=== PATIENT | female | born 1955 | race Caucasian/White ===

== ENCOUNTER → 2018-10-28 11:21 | Outpatient (CLI) | payer MEDICARE, OTHER, SELFPAY ==
--- NOTE | 2018-10-28 11:33 | XR_ITS ---
EXAM: XR lumbar spine min 4V HISTORY: ITS.REASON: LOW BACK PAIN ORDERING PHYSICIAN: Santy Arrington MD PATIENT AGE: 63 years COMPARISON: None FINDINGS: There is mild anterolisthesis of L4 on L5 of 4 mm. There are mild facet arthritic changes at L4-L5 and L5-S1. There is minimal dorsal angulation of the tip of the coccyx. Generalized vascular calcification is present. No fracture or dislocation. No lytic or blastic change IMPRESSION: Mild degenerative change, no acute finding
== END ==
PROVIDERS: PCP Family Medicine; Visit Provider Family Medicine
DX: M54.5 Low back pain (principal)
CPT/HCPCS: 72110

== ENCOUNTER → 2019-02-09 15:12 | Outpatient (CLI) | payer MEDICARE, OTHER, SELFPAY ==
--- NOTE | 2019-02-09 15:19 | CA_ITS ---
APPROVED REPORT Bilateral Lower Extremity Venous Study for DVT. Microbiology Teacher: JOSELUIS Indications Lower Extremity Pain: Vein Imaging CFV (L): compressive, spontaneous, phasic, augmentation SFJ (L): compressive, spontaneous, phasic, augmentation FEM (L): compressive, spontaneous, phasic, augmentation POP (L): compressive, spontaneous, phasic, augmentation PTV (L): Compressible GSV (L): Compressible Peroneals (L):Compressible GAS (L): Compressible Findings No evidence of DVT or superficial thrombophlebitis in the veins scanned of the left lower extremity. Jil Sanders notified Conclusion No evidence of DVT or superficial thrombophlebitis in the veins scanned of the left lower extremity. Electronically signed by : Trino Liao MD 02/10/2019 15:47:12
[2019-02-09 16:35] LABS: Basophils # 0.1 K/mm3 (0-0.2); Basophils % 0.7 % (0.1-2.0); Eosinophils # 0.1 K/mm3 (0.0-0.4); Eosinophils % 1.5 % (0.1-12.0); Hematocrit 38.8 % (37.0-47.0); Hemoglobin 12.7 g/dL (12.2-16.2); Lymphocytes # 2.4 K/mm3 (0.7-4.5); Lymphocytes % 27.9 % (10-50); Mean Corpuscular HGB Conc 32.6 g/dL (31.8-35.4); Mean Corpuscular Hemoglobin 29.8 pg (27.0-31.2); Mean Corpuscular Volume 91.3 fl (81-99); Mean Platelet Volume 8.3 fl (7.4-10.4); Monocytes # 0.4 K/mm3 (0.1-1.0); Neutrophils # 5.6 K/mm3 (1.8-7.8); Neutrophils % 64.8 % (37.0-80.0); Platelet Count 239 K/mm3 (142-424); Red Blood Count 4.25 M/mm3 (4.20-5.40); Red Cell Distribution Width 12.9 % (11.5-17.5); White Blood Count 8.6 K/mm3 (4.8-10.8)
[2019-02-09 17:17] LABS: Alanine Aminotransferase 37 U/L (12-78); Albumin Level 4.3 gm/dL (3.4-5.0); Albumin/Globulin Ratio 1.5 (1.1-1.8); Alkaline Phosphatase 68 U/L (46-116); Anion Gap 18.2 mEq/L (5-15); Aspartate Amino Transferase 34 U/L (15-37); Bilirubin,Total 0.3 mg/dL (0.2-1.0); Blood Urea Nitrogen 14 mg/dL (7-18); C-Reactive Protein 0.2 mg/dL (0.0-0.9); Calcium 9.2 mg/dL (8.5-10.1); Carbon Dioxide 27 mmol/L (21.0-32.0); Chloride 97 mmol/L (98-107); Creatinine,Serum 0.85 mg/dL (0.55-1.02); Estimated Glomerular Filt Rate 67 ml/min (>60); GFR (African American) 81 ML/MIN (>60); Globulin 2.9 gm/dl (1.3-3.2); Glucose 197 mg/dL (74-106); Magnesium 1.8 mg/dL (1.4-2.2); Potassium 4.2 mmoL/L (3.5-5.1); Sodium 138 mmol/L (136-145); Total Protein,Serum 7.2 gm/dL (6.4-8.2)
== END ==
PROVIDERS: PCP Family Medicine; Visit Provider Nurse Practitioner Family
DX: M79.662 Pain in left lower leg (principal)
CPT/HCPCS: 36415; 80053; 83735; 85025; 86140; 93971

== ENCOUNTER → 2019-04-27 10:42 | Outpatient (CLI) | payer MEDICARE, OTHER, SELFPAY ==
--- NOTE | 2019-04-27 | CA_ITS ---
APPROVED REPORT Exam: Pharmacologic Technologist: Elly Mullen Ht: 5 ft 8 in Wt: 323 lbs BSA: 2.51 m2 HR: 71 bpm BP: 144/90 mmHg Indications: Shortness of Breath and chest pain Stress Test Details Test: LEXISCAN HR Resting HR: 69 bpm Max Heart Rate (APMHR): 155 bpm Max HR Achieved: 85 bpm Target HR (85% APMHR): 131 bpm % of APMHR: 54 Recovery HR: 75 bpm BP Resting BP: 144/90 mmHg Max BP: 144/90 mmHg Recovery BP: 140.0/80.0 mmHg ECG Clinical Reason for Termination: Completed Protocol Exercise duration: 04:05 min Highest Stage Achieved: Exercise capacity: 1.0 METs Stress ECG Conclusion Resting ECG: Normal sinus rhythm Symptoms: No chest pain or shortness of air. Arrhythmias/Ectopy: None ST-T Changes: < 1.[address] segment changes Conclusion: Non-diagnostic stress test. Patient received the infusion per protocol without chest pain, ST segment changes or arrhythmias. See the nuclear report for further information. Test Summary REST . . . . . . . Resting REST 13:47 . . 69 . 144/ 90 . . Stage 1 . . . . . . . Myoview Injected Stage 1 01:00 . . 82 . . . . Stage 2 01:00 . . 81 . 140/ 90 . . Stage 3 01:00 . . 81 . 130/ 88 . . Stage 4 01:00 . . 79 . 130/ 70 . . Stage 4 01:05 . . 79 . 130/ 70 . Stop exercise at 04:05 RECOVERY 01:00 . . 76 . . . . RECOVERY 02:00 . . 74 . . . . RECOVERY 03:00 . . 75 . . . . RECOVERY 03:34 . . 71 . . . . Electronically signed by : Dane Miller, 04/27/2019 19:39:16
--- NOTE | 2019-04-27 10:48 | CA_ITS ---
APPROVED REPORT EXAM: Comprehensive 2D, Doppler, and color-flow Echocardiogram Cryogenics Repairer: Niyah Boudreaux CRT Ht: 5 ft 8 in Wt: 323lbs BSA: 2.51 BP: 159/79 mmHg Indications: sob, obesity, tde definity given Echo Enhancing Agent Indication: Endocardial border delineation Agent(s) / Amount(s) Used: Definity 1 cc LV Diastology E/A Ratio 0.76 Mitral Valve MV A Velocity 85.00 (40-130 cm/s) Left Ventricle Left atrium is mildly enlarged, left ventricle is normal size, mild concentric left ventricular hypertrophy, visually estimated ejection fraction 55% with no regional wall motion abnormality, definitely contrast was utilized to delineate the endocardial surfaces, there is no left ventricular thrombus seen, grade 1 diastolic dysfunction seen without tissue Doppler evidence of raise left atrial pressure. Right Ventricle Right atrium and right ventricular normal size and contractility. Aortic Valve Aortic valve is minimally thickened and fibrosed, there is no aortic stenosis, or significant aortic insufficiency. Mitral Valve Mitral valve is grossly normal, there is mild mitral regurgitation. Tricuspid Valve Tricuspid valve is grossly normal, there is mild tricuspid regurgitation. Pulmonic Valve Pulmonic valve is poorly visualized. Great Vessels Aortic root is normal size. Pericardium No significant pericardial effusion noted. Conclusion 1. Mildly enlarged left atrium, normal left ventricular size, mild concentric left ventricular hypertrophy, visually estimated ejection fraction 55% with no regional wall motion abnormality, grade 1 diastolic dysfunction seen without tissue Doppler evidence of raise left atrial pressure, definitely contrast was utilized to delineate the endocardial surfaces, there is no left ventricular thrombus seen. 2. Mildly enlarged right ventricle with normal contractility. 3. Mild mitral and tricuspid regurgitation. 4. No significant pericardial effusion noted. Electronically signed by : Dane Miller, 04/27/2019 20:26:57
--- NOTE | 2019-04-27 11:29 | NM_ITS ---
APPROVED REPORT Exam: Nuclear Stress Test Indication: obesity, htn, d.m., hyperlipidemia, c.p., sob, palpitations, syncope, fatique Patient Location: Outpatient Stress Tech: Deena Montelongo MS Tech:Janee Cruz, ARRT, RT (R)(N) Ht: 5 ft 8 in Wt: 323 lbs Bra Size: 48DD HR: 71 bpm BP: 144/90 mmHg BSA: 2.51 m2 BMI: 49.1 History: obesity, htn, d.m., hyperlipidemia, c.p., sob, palpitations, syncope, fatique Procedure: Patient received a 0.4 mg of intravenous Lexiscan, resting heart rate 71 bpm, resting blood pressure 144/90 mmHg, with Lexiscan maximum heart rate achived was 98 bpm which is Less than 85 % of the maximum predicted heart rate and blood pressure was 130/88 mmHg. With Lexiscan, patient denied any complaint of chest pain. Electrocardiogram Resting electrocardiogram shows sinus rhythm, with Lexiscan there is less than 1.[address] segment depression noted from the baseline EKG. The EKG portion of the Lexiscan Myoview is nondiagnostic. Cardiac Stress and Resting SPECT Images: Cardiac Stress and Resting SPECT images were obtained using technetium 99m Myoview 30.6 mCi stress and 11.37 mCi at rest. Gated SPECT with analysis of segmental wall motion and calculation of the ejection fraction also done. Cardiac stress and resting SPECT images show mild fixed defect in the anterior wall with normal contractility to SPECT is likely secondary to soft tissue attenuation, no reversible ischemia seen, computer derived ejection fraction is over 65% with no regional wall motion abnormality, right ventricle is mildly enlarged with normal contractility. Conclusion: 1. The EKG portion of the Lexiscan Myoview is nondiagnostic. 2. No scintigraphic evidence of reversible ischemia seen, computer derived ejection fraction is over 65% with no regional wall motion abnormality, right ventricle is mildly enlarged with normal contractility. 3. Likely normal Lexiscan Myoview study. Electronically signed by : Dane Miller, 04/27/2019 19:41:53
--- NOTE | 2019-04-27 14:10 | HMH.ITSHM ---
Current Home Medications as stated by this patient Nancy Neil or guest services representative. []AMOXICILLIN ANASTROZOLE ATENOLOL DYLOXETINE FLOCANAZOLE GABAPENTIN HYDROCODONE LEVOTHYROXINE MELOXICAM METFORMIN OMEGA 3 PIOGLITAZONE PRAVSTATIN SULFASLAZINE TRIAMTERENE
== END ==
PROVIDERS: PCP Family Medicine; Visit Provider Nurse Practitioner
DX: R06.02 Shortness of breath (principal); R11.0 Nausea
CPT/HCPCS: 78452; 93017; 93306; A9502; J2785; Q9957

== ENCOUNTER → 2019-05-01 08:17 | Outpatient (CLI) | payer MEDICARE, OTHER, SELFPAY ==
--- NOTE | 2019-05-01 08:20 | US_ITS ---
PROCEDURE: US ABDOMEN LIMITED CLINICAL INDICATION: SOB,NAUSEA Right upper quadrant pain with nausea COMPARISON: No exams were available for comparison FINDINGS: Exam is limited secondary to patient's body habitus PANCREAS: Poor visualization of the pancreas LIVER: Fatty liver RIGHT KIDNEY: Unremarkable. Normal size and echogenicity. No hydronephrosis GALLBLADDER: No gallstones, gallbladder wall thickening, pericholecystic fluid, or biliary dilatation. IMPRESSION: Fatty liver otherwise negative Dictated by: Trino Liao MD 05/01/2019 14:31 Electronically signed by Trino Liao MD in [place] 05/01/2019 14:31
--- NOTE | 2019-05-01 08:20 | CT_ITS ---
PROCEDURE: CT HEAD/BRAIN WO/W CON CLINICAL INDICATION: ABN BONE SCAN,FATIGUE,MALIGNANT NEOPLASM OF BREAST Headache, history of lymphoma and breast cancer with fatigue COMPARISON: [facility] CT HEAD-W/WO CONTRAST from 11/17/2013 TECHNIQUE: IV Contrast: 100ML OPITRAY 320 Axial images obtained. All CT scans at the facility use one or more dose reduction, viz: automated exposure control, ma/kV adjustment per patient size (including targeted exams where dose is matched to indication, i.e. head), or iterative reconstruction technique. FINDINGS: No midline shift, mass effect, intracranial hemorrhage, hydrocephalus, or extra-axial fluid collection is evident. No enhancing lesions are evident. The calvarium has an unremarkable appearance. No mastoid effusion or sinus air-fluid level. IMPRESSION: Negative CT head without and with contrast. Dictated by: Trino Liao MD 05/01/2019 15:26 Electronically signed by Trino Liao MD in [place] 05/01/2019 15:26
== END ==
PROVIDERS: PCP Family Medicine; Visit Provider Nurse Practitioner
DX: R06.02 Shortness of breath (principal); R11.0 Nausea; R94.8 Abnormal results of function studies of other organs and systems; R53.83 Other fatigue; C50.919 Malignant neoplasm of unspecified site of unspecified female breast
CPT/HCPCS: 70470; 76705; Q9967

== ENCOUNTER → 2019-06-10 10:38 | Outpatient (CLI) | payer MEDICARE, OTHER, SELFPAY ==
[2019-06-10 11:30] VITALS: PULSE 70; PULSE 75
== END ==
PROVIDERS: PCP Family Medicine; Visit Provider Nurse Practitioner Family
DX: R06.02 Shortness of breath (principal)
CPT/HCPCS: 94060; 94640

== ENCOUNTER → 2019-06-22 10:42 | Outpatient (CLI) | payer MEDICARE, OTHER, SELFPAY ==
--- NOTE | 2019-06-22 11:02 | XR_ITS ---
PROCEDURE: XR CHEST 2V CLINICAL HISTORY: SOB Cough and shortness of breath COMPARISON: CXR CHEST(2 VIEWS-NOT PORTABLE) from 09/27/2015 FINDINGS: Mild cardiomegaly without failure. Fibrotic changes are present in the lingula. This is not significantly changed. The lungs are clear without infiltrates, suspicious nodules, or pleural effusions. No acute bony abnormalities. IMPRESSION: Cardiomegaly with mild fibrotic change in the lingula. Overall no significant change with no acute finding Dictated by: Trino Liao MD 06/22/2019 11:43 Electronically signed by Trino Liao MD in [place] 06/22/2019 11:43
== END ==
PROVIDERS: PCP Nurse Practitioner Family; Visit Provider Nurse Practitioner Family
DX: R06.02 Shortness of breath (principal)
CPT/HCPCS: 71046

== ENCOUNTER 2020-12-10 11:00 | Emergency (ER) | payer MEDICARE, OTHER, SELFPAY ==
[2020-12-10 11:01] VITALS: BP 141/71; PULSE 73; RESP 18; TEMP 36.7; O2SAT 97; BMI 47.9
--- NOTE | 2020-12-10 11:20 | XR_ITS ---
PROCEDURE INFORMATION: Exam: XR Right Wrist Exam date and time: 12/10/2020 11:20 AM Age: 65 years old Clinical indication: Injury or trauma; Fall; Blunt trauma (contusions or hematomas); Wrist; Right; Additional info: Pain TECHNIQUE: Imaging protocol: XR Right wrist. Views: 3 or more views. COMPARISON: No relevant prior studies available. FINDINGS: Bones/joints: Normal. Soft tissues: Normal. IMPRESSION: No acute findings.
--- NOTE | 2020-12-10 11:31 | XR_ITS ---
PROCEDURE INFORMATION: Exam: XR Right Forearm Exam date and time: 12/10/2020 11:31 AM Age: 65 years old Clinical indication: Injury or trauma; Fall; Blunt trauma (contusions or hematomas); Arm, lower; Right TECHNIQUE: Imaging protocol: XR Right forearm. Views: 2 views. COMPARISON: No relevant prior studies available. FINDINGS: Bones/joints: Normal. Soft tissues: Normal. IMPRESSION: No acute findings.
--- NOTE | 2020-12-10 11:31 | XR_ITS ---
PROCEDURE INFORMATION: Exam: XR Right Elbow Exam date and time: 12/10/2020 11:31 AM Age: 65 years old Clinical indication: Injury or trauma; Fall; Blunt trauma (contusions or hematomas); Elbow; Right TECHNIQUE: Imaging protocol: XR Right elbow. Views: 3 or more views. COMPARISON: No relevant prior studies available. FINDINGS: Bones/joints: Mild degenerative changes involving the elbow joint. Questionable elbow joint effusion with prominence of the anterior fat pad. Occult trauma cannot be completely excluded. . IMPRESSION: Questionable elbow joint effusion with prominence of the anterior fat pad. Occult trauma cannot be completely excluded. Remainder of findings as described above.
[2020-12-10 12:03] VITALS: BP 141/71; PULSE 73; RESP 18; TEMP 36.7; O2SAT 97; BMI 47.0
--- NOTE | 2020-12-10 12:47 | HMH.EDUTC ---
[facility] [place] Clinical Impression: Elbow pain, right Disposition: Home, Self-Care Condition on Discharge: Good Instructions: DI for Elbow Pain Additional Instructions: follow up with ortho call saturday for appointment rest Ice with cold pack for 20 minutes remove may repeat for comfort every hour Elevate with arm above your heart as much as possible to help reduce swelling and therefore pain Ibuprofen every 6 hours as needed for pain or inflammation. If needs something more you can take Tylenol every 4 hours as needed as long as her primary care has told he was okayed for you to take both. If improving any do not need to follow-up you can bring begin exercising 2-3 weeks after injury. Follow-up immediately if new or worsening symptoms or no noticeable improvement over the next 3-5 days. Referrals: Santy Arrington MD [Primary Care Provider] - Jac Nichols MD [Staff Physician] - Time of Disposition: 12:57 Medical Decision Making - Can Inquiry Pt receiving controlled substance: No Vital Signs: 12/10/20 11:01 12/10/20 12:03 Temperature 98.1 F 98.1 F Temperature Source Oral Tympanic Pulse Rate [Right] 73 73 Respiratory Rate 18 18 Blood Pressure [Right Arm] 141/71 H 141/71 H Blood Pressure Mean [Right Arm] 94 94 Blood Pressure Source [Right Arm] Automatic Cuff Blood Pressure Position [Right Arm] Sitting 02 Sat by Pulse Oximetry 97 97 Oxygen Delivery Method Room Air Room Air Medical Decision Narrative: discussed xray results with pt on anterior fat pad injury and the need to splint and sling arm until cleared by ortho but pt refused splint and states she has a sling at home. I discussed poss risk of not splinting incase there is a fx and she still refused [facility] HPI - General Chief complaint: [facility] Stated complaint: ao 12/09/20 @ 1130 injury to Rt wrist Time Seen by Provider: 12/10/20 12:47 Mode of Arrival: Ambulatory Source of Information: Patient Limitations: No Limitations Description of Symptoms (Recalled from Triage Doc. by RN): patient fell on arm HEENT Symptoms (Recalled from RN notes): No Resp Symptoms (Recalled from RN notes): No Skin Symptoms (Recalled from RN notes): No MS Symptoms (Recalled from RN notes): Yes (arm pain) Functional Status (Recalled from RN notes): na - History of Present Illness Provider Complaint: 65 yr old female presents for rt arm pain. pt states she forgot about a step and fell hitting rt forearm - Related Data Allergies Allergy/AdvReac Type Severity Reaction Status Date / Time Tetanus Toxoid Allergy Unknown Uncoded 05/07/17 14:25 - Worker's Comp Is this a Worker's Comp case?: No [facility] History - Hepatitis A Screen Drug use history?: No High risk sexual behaviors?: No History of sexually transmitted infection?: No Currently employed?: No Childcare worker?: No Do you have indoor plumbing?: Yes Do you have electricity?: Yes Attestation statement:: This patient has been screened for Hepatitis A risk factors. I have reviewed the patient's past medical history: Yes ROS Obtained: Yes Systems reviewed as appropriate & no additional complaints - Constitutional Constitutional: Reports system reviewed and no additional complaints, except as docu, Denies fatigue - Eyes Eyes: Reports system reviewed and no additional complaints, except as docu, Denies blurry vision - ENT Ears, Nose, Mouth, and Throat: Reports system reviewed and no additional complaints, except as docu, Denies sore throat - Cardiovascular Cardiovascular: Reports system reviewed and no additional complaints, except as docu, Denies chest pain - Respiratory Respiratory: Reports system reviewed and no additional complaints, except as docu, Denies cough - Gastrointestinal Gastrointestingal: Reports: system reviewed and no additional complaints, except as docu. Denies: belching - Genitourinary Female Genitourinary: Reports system reviewed and no additional complaints
[2020-12-10 12:58] VITALS: BP 141/71; PULSE 73; RESP 18; TEMP 36.7; O2SAT 97
== END 2020-12-10 13:00 | disposition home or self-care (01) ==
LOC: ER 11:19 → UTC 11:19
PROVIDERS: Emergency Provider Nurse Practitioner Family; PCP Family Medicine
DX: S50.01XA Contusion of right elbow, initial encounter (principal); W10.9XXA Fall (on) (from) unspecified stairs and steps, initial encounter; Y92.019 Unspecified place in single-family (private) house as the place of occurrence of the external cause
CPT/HCPCS: G0463; 73080; 73090; 73110; 99202

== ENCOUNTER → 2021-01-31 12:30 | Outpatient (CLI) | payer MEDICARE, OTHER, SELFPAY | PROVIDERS: PCP Family Medicine; Visit Provider Nurse Practitioner | DX: Z20.822 Contact with and (suspected) exposure to COVID-19 (principal); U07.1 COVID-19 | CPT/HCPCS: C9803; U0003; U0005 ==

== ENCOUNTER → 2021-02-20 16:40 | Outpatient (CLI) | payer MEDICARE, OTHER, SELFPAY ==
--- NOTE | 2021-02-20 16:49 | XR_ITS ---
PROCEDURE INFORMATION: Exam: XR Chest Exam date and time: 02/20/2021 4:49 PM Age: 65 years old Clinical indication: Shortness of breath; Additional info: Viral pneumonia, covid 19 TECHNIQUE: Imaging protocol: XR of the chest. Views: 2 views. COMPARISON: CR XR CHEST 2V 06/22/2019 11:20 AM FINDINGS: Lungs: Patchy bilateral opacities may represent multifocal pneumonia including COVID-19. Pleural spaces: Unremarkable. No pleural effusion. No pneumothorax. Heart/Mediastinum: Unremarkable. No cardiomegaly. Bones/joints: Unremarkable. IMPRESSION: Patchy bilateral opacities may represent multifocal pneumonia including COVID-19.
== END ==
PROVIDERS: PCP Family Medicine; Visit Provider Family Medicine
DX: U07.1 COVID-19 (principal)
CPT/HCPCS: 71046

== ENCOUNTER 2021-02-21 17:37 | Inpatient (IN) | payer MEDICARE, OTHER, SELFPAY ==
[2021-02-21 17:40] VITALS: BP 134/51; PULSE 74; RESP 30; TEMP 36.9; O2SAT 70; BMI 42.7
--- NOTE | 2021-02-21 17:46 | XR_ITS ---
PROCEDURE INFORMATION: Exam: XR Chest Exam date and time: 02/21/2021 5:46 PM Age: 65 years old Clinical indication: Patient HX: Shortness of breath, same as yesterday. Also had a chest x-ray yesterday. ; Additional info: SOB TECHNIQUE: Imaging protocol: XR of the chest. Views: 1 view. COMPARISON: CR XR CHEST 2V 02/20/2021 4:57 PM FINDINGS: Lungs: Unremarkable. No consolidation. Pleural spaces: Unremarkable. No pleural effusion. No pneumothorax. Heart/Mediastinum: Unremarkable. No cardiomegaly. Bones/joints: Unremarkable. IMPRESSION: No acute findings.
--- NOTE | 2021-02-21 18:04 | HMH.EDGENADL ---
ED Disposition Clinical Impression: Acute respiratory failure with hypoxemia, COVID-19, Hyperglycemia Disposition: Admitted As Inpatient Condition on Discharge: Fair Referrals: Wing Lopez MD [Primary Care Provider] - Time of Disposition: 19:03 - Critical Care Critical Care Time: Yes Attestation: On 02/21/21, the high probability of a clinically significant, sudden or life threatening deterioration of the following system(s) required my full and direct attention, intervention and personal management. The time I documented below is in addition to time spent performing reported procedures but includes the following listed in this critical care notation. Total Critical Care Time: 35 Vital system(s) involved:: Respiratory Failure My critical care processes included: Assessment & monitoring of V/S, Initial and Re-exams, Data Review/Interpretation, Coordinating Care, Medication Orders and management, Documentation Medical Decision Making - Medical Records Medical records reviewed: Yes: I reviewed the patient's medical records. - Can Inquiry Pt receiving controlled substance: No - Lab Data Lab results reviewed: Yes: I reviewed the patient's lab results. Lab Results 02/21/21 17:46: Specimen Source r/r, O2 % 100, ABG pH 7.45, ABG pCO2 31.0 L, ABG pO2 176.3 H, ABG HCO3 21.2 L, ABG Total CO2 22.2 L, ABG O2 Saturation 99, ABG Base Excess -2.7 L, Trino Test y 02/21/21 18:10: WBC 9.0, RBC 4.49, Hgb 13.8, Hct 42.3, MCV 94.3, MCH 30.7, MCHC 32.6, RDW 13.5, Plt Count 254, MPV 9.6, Neut % (Auto) 70.1, Lymph % (Auto) 24.5, Day % (Auto) 3.9, Eos % (Auto) 0.6, Baso % (Auto) 0.8, Neut # (Auto) 6.3, Lymph # (Auto) 2.2, Day # (Auto) 0.4, Eos # (Auto) 0.1, Baso # (Auto) 0.1 02/21/21 18:10: Sodium 134 L, Potassium 3.8, Chloride 96 L, Carbon Dioxide 30, Anion Gap 11.8, BUN 10, Creatinine 0.50 L, Estimated Creat Clear 55, Estimated GFR 123, Est GFR ( Amer) 149, Glucose 404 H*, Calcium 9.3, Total Bilirubin 0.6, AST 33, ALT 24, Alkaline Phosphatase 68, Troponin I < 0.01, NT-Pro-B Natriuret Pep 98.7, Total Protein 6.9, Albumin 3.9, Globulin 3.0, Albumin/Globulin Ratio 1.3 02/21/21 18:10: SARS-CoV-2 (PCR) Detected A, Influenza A Untype (PCR) Not detected, Influenza Type B (PCR) Not detected Result diagrams: 02/21/21 18:10 02/21/21 18:10 Orders (Tests/Meds): ORDERS Category Date Time Status Troponin I Q3H Lab 02/21/21 21:00 Ordered Troponin I Q3H Lab 02/22/21 00:00 Ordered - Radiology Data #1 Image(s): Chest Image Reviewed: Yes I reviewed the patient's radiology results Preliminary Findings: Normal/NAD - ECG Data Tracing #1 I reviewed this ECG and interpreted as documented below: Normal sinus rhythm, 77 bpm, no ST elevation or depression, no ectopy, normal intervals. ECG initial impression date: 02/21/21 ECG initial impression time: 18:34 Medical Decision Narrative: 65yo F evaluated for severe respiratory distress. Patient 70% on room air upon arrival. She was placed on 15 L nonrebreather and her O2 saturations have improved. Nursing staff been able to wean the patient down to 6 L nasal cannula while maintaining O2 saturations in the mid 90s. Patient laboratory studies are remarkable only for hyperglycemia and she is Covid positive. EKG unremarkable as above. Chest x-ray is benign. Case discussed Dr. Rodriguez who agrees to admit the patient thinks that we should treat the patient fully as a Covid patient. Routine Covid order set will be initiated. General Adult HPI - General Stated complaint: low O2 Levels Time Seen by Provider: 02/21/21 18:04 Mode of Arrival: Ambulatory - History of Present Illness HPI narrative: 65yo F presents [facility] secondary shortness of breath. Patient reports she had Covid in early January. She reports receiving monoclonal antibodies and doing better afterward. She then developed bronchitis and was treated by her PCP and again got better. She states she has h
--- NOTE | 2021-02-21 18:05 | PC.NURSE ---
PT O2 SAT 100% ON 15 LPM VIA NON REBREATHER O2 DECREASED TO 6 LPM VIA CANNULA O2 SATS 93 TO 94% AND RESTING COMFORTABLY
[2021-02-21 18:09] LABS: ABG Base Excess -2.7 mmol/L (-2.4-2.3); ABG HCO3 21.2 mmhg (22.0-26.0); ABG Oxygen Saturation 99 % (90-100); ABG PH 7.45 mmol/L (7.35-7.45); ABG PO2 176.3 mmhg (80-100); ABG TCO2 22.2 mmhg (23-27)
[2021-02-21 18:10] LABS: Allen's Test y; Oxygen 100 %
[2021-02-21 18:18] LABS: Influenza A, PCR Not Detected (NotDetected); Influenza B, PCR Not Detected (NotDetected)
[2021-02-21 18:20] LABS: Basophils # 0.1 K/mm3 (0-0.2); Basophils % 0.8 % (0.1-2.0); Eosinophils # 0.1 K/mm3 (0.0-0.4); Eosinophils % 0.6 % (0.1-12.0); Hematocrit 42.3 % (37.0-47.0); Hemoglobin 13.8 g/dL (12.2-16.2); Lymphocytes # 2.2 K/mm3 (0.7-4.5); Lymphocytes % 24.5 % (10-50); Mean Corpuscular HGB Conc 32.6 g/dL (31.8-35.4); Mean Corpuscular Hemoglobin 30.7 pg (27.0-31.2); Mean Corpuscular Volume 94.3 fl (81-99); Mean Platelet Volume 9.6 fl (7.4-10.4); Monocytes # 0.4 K/mm3 (0.1-1.0); Monocytes % 3.9 % (1.7-9.3); Neutrophils # 6.3 K/mm3 (1.8-7.8); Neutrophils % 70.1 % (37.0-80.0); Platelet Count 254 K/mm3 (142-424); Red Blood Count 4.49 M/mm3 (4.20-5.40); Red Cell Distribution Width 13.5 % (11.5-17.5)
[2021-02-21 18:25] VITALS: BMI 43.2
[2021-02-21 18:26] LABS: Alanine Aminotransferase 24 U/L (12-78); Albumin Level 3.9 g/dl (3.5-5.0); Albumin/Globulin Ratio 1.3 (1.1-1.8); Alkaline Phosphatase 68 U/L (38-126); Anion Gap 11.8 mEq/L (5-15); Aspartate Amino Transferase 33 U/L (14-36); Bilirubin,Total 0.6 mg/dl (0.2-1.3); Blood Urea Nitrogen 10 mg/dl (7-17); Calcium 9.3 mg/dl (8.4-10.2); Carbon Dioxide 30 mmol/L (22.0-30.0); Chloride 96 mmol/L (98-107); Estimated Glomerular Filt Rate 123 ml/min (>60); GFR (African American) 149 ML/MIN (>60); Potassium 3.8 mmoL/L (3.5-5.1); Sodium 134 mmol/L (136-145); Total Protein,Serum 6.9 g/dl (6.3-8.2)
--- NOTE | 2021-02-21 18:30 | ECG_ITS ---
APPROVED REPORT Exam: Resting ECG HR:77 bpm ECG Measurements Heart Rate 77 AXES LA 152 P 36 QRSd 86 QRS -20 QT 394 T 1 QTc 445 Conclusion Normal sinus rhythm Nonspecific T wave abnormality Abnormal ECG Electronically signed by : Wing Tony MD 02/23/2021 17:50:30
[2021-02-21 18:34] LABS: Creatinine Clearance Estimated 55 mL/min (50-200)
[2021-02-21 18:35] LABS: Glucose 404 mg/dl (74-100)
[2021-02-21 18:39] LABS: NT Pro Brain Natriuretic Pep. 98.7 pg/mL (0-125)
[2021-02-21 18:49] LABS: Coronavirus 19, PCR Detected (NotDetected)
[2021-02-21 18:52] LABS: Troponin I < 0.01 ng/ml (0.00-0.034)
--- NOTE | 2021-02-21 19:09 | PC.NURSE ---
spoke with Dr. Rodriguez for admission
--- NOTE | 2021-02-21 19:10 | PC.NURSE ---
Notified house of admission
--- NOTE | 2021-02-21 19:13 | CT_ITS ---
PROCEDURE INFORMATION: Exam: CTA Chest With Contrast Exam date and time: 02/21/2021 7:13 PM Age: 65 years old Clinical indication: Other: Hypoxia TECHNIQUE: Imaging protocol: Computed tomographic angiography of the chest with contrast. 3D rendering (Not supervised by radiologist): MIP and/or 3D reconstructed images were created by the technologist. Radiation optimization: All CT scans at this facility use at least one of these dose optimization techniques: automated exposure control; mA and/or kV adjustment per patient size (includes targeted exams where dose is matched to clinical indication); or iterative reconstruction. Contrast material: ISOVUE 370; Contrast volume: 70 ml; Contrast route: INTRAVENOUS (IV); COMPARISON: CR XR CHEST PORTABLE 02/21/2021 5:56 PM FINDINGS: Pulmonary arteries: Main pulmonary artery is enlarged at 40 mm. No evidence of pulmonary embolus to the segmental level. Aorta: Unremarkable. No aortic aneurysm. Other arteries: Coronary artery calcifications. Lungs: A 6 mm nodule seen in the left base. See image 225 of series 2.For patients at low risk (minimal or absent history of smoking and of other known risk factors), no routine follow-up is indicated. For patients at high risk (history of smoking or of other known risk factors), consider optional CT Chest at 12 months. (Reference: Mary) References: Miryamhokerri H, et al. Guidelines for Management of Incidental Pulmonary Nodules Detected on CT Images: From the Fleischner Society 2017. Radiology. 2017;284(1):228-243. Multifocal airspace opacities are seen. These are compatible with infection. Pleural spaces: Unremarkable. No pneumothorax. No pleural effusion. Heart: Unremarkable. No cardiomegaly. No pericardial effusion. Lymph nodes: Mildly prominent mediastinal and hilar lymph nodes. Mild prominence of right axillary lymph nodes. Bones/joints: Unremarkable. No acute fracture. Soft tissues: Unremarkable. Other findings: A 16 mm focal asymmetry is seen in the left breast about 2 cm back from the nipple. Recommend correlation with mammography to exclude malignancy. IMPRESSION: 1. A 16 mm focal asymmetry in the left breast is worrisome for potential malignancy. Prominent right axillary nodes. Recommend correlation with mammography and/or ultrasound. 2. No evidence of pulmonary embolus. Enlargement of the main pulmonary artery to 40 mm may reflect an element of pulmonary arterial hypertension. 3. Mild multifocal airspace opacities compatible with infection.
[2021-02-21 19:59] LABS: Procalcitonin 0.065 ng/mL (0.0-2.0)
[2021-02-21 20:00] VITALS: BP 130/54; BP 132/62; PULSE 76; PULSE 79; RESP 19; RESP 20; TEMP 37; O2SAT 90; O2SAT 96
[2021-02-21 20:25] VITALS: BP 130/54; PULSE 77; RESP 20; TEMP 36.9; O2SAT 93
[2021-02-21 20:31] VITALS: BMI 44.6
[2021-02-21 21:17] LABS: Troponin I < 0.01 ng/ml (0.00-0.034)
[2021-02-21 21:21] VITALS: O2SAT 93
[2021-02-21 23:57] VITALS: BP 141/62; PULSE 75; RESP 21; TEMP 36.9; O2SAT 92
[2021-02-22 03:49] LABS: Troponin I < 0.01 ng/ml (0.00-0.034)
--- NOTE | 2021-02-22 03:55 | PC.NURSE ---
ADDED HUMDICATION TO THE OXYGEN. PT STATED SHE WAS DRYING OUT. PT IS ON 4L N/C.
[2021-02-22 04:00] VITALS: BP 136/70; PULSE 75; RESP 21; TEMP 37; O2SAT 93
--- NOTE | 2021-02-22 04:22 | PC.NURSE ---
Pt A&O. No c/o of pain through the night. Lungs are diminished, on 4L NC, sats in the low to mid 90s. No edema noted. pt able to use BSC independently and tolerates well. Bowel sounds x4, abd soft and nontender. NSR on tele. IV patent, SL. VSS, call light in reach, no concerns at this time.
[2021-02-22 06:28] LABS: Basophils # 0.1 K/mm3 (0-0.2); Basophils % 0.7 % (0.1-2.0); Eosinophils # 0.1 K/mm3 (0.0-0.4); Eosinophils % 1.4 % (0.1-12.0); Hematocrit 39.2 % (37.0-47.0); Hemoglobin 12.9 g/dL (12.2-16.2); Lymphocytes # 1.9 K/mm3 (0.7-4.5); Lymphocytes % 27.1 % (10-50); Mean Corpuscular HGB Conc 32.8 g/dL (31.8-35.4); Mean Corpuscular Hemoglobin 30.3 pg (27.0-31.2); Mean Corpuscular Volume 92.4 fl (81-99); Mean Platelet Volume 9.1 fl (7.4-10.4); Monocytes # 0.3 K/mm3 (0.1-1.0); Monocytes % 4.8 % (1.7-9.3); Neutrophils # 4.6 K/mm3 (1.8-7.8); Neutrophils % 66.1 % (37.0-80.0); Platelet Count 213 K/mm3 (142-424); Red Blood Count 4.25 M/mm3 (4.20-5.40); Red Cell Distribution Width 13.7 % (11.5-17.5)
[2021-02-22 06:55] LABS: Chloride 100 mmol/L (98-107); Potassium 3.6 mmoL/L (3.5-5.1); Sodium 135 mmol/L (136-145)
[2021-02-22 06:58] LABS: Anion Gap 10.6 mEq/L (5-15); Blood Urea Nitrogen 8 mg/dl (7-17); Carbon Dioxide 28 mmol/L (22.0-30.0); Creatinine Clearance Estimated 55 mL/min (50-200); Estimated Glomerular Filt Rate 159 ml/min (>60); GFR (African American) 193 ML/MIN (>60)
[2021-02-22 06:59] LABS: Calcium 8.7 mg/dl (8.4-10.2); Glucose 224 mg/dl (74-100)
--- NOTE | 2021-02-22 07:17 | HMH.HPDC ---
General - General Admission date:: 02/21/21 Discharge date: 02/22/21 *Admission Date: 02/21/21 *Chief complaint: Shortness of breath *History of present illness: 65-year-old female presented to the emergency department last night with shortness of breath and hypoxia at home. Patient was diagnosed with COVID-19 infection and subsequent viral pneumonia on January 31. Patient received monoclonal antibodies in my office. She was also treated with dexamethasone. Approximately a week to 10 days after her monoclonal antibodies patient returned with increased cough and sputum production and was treated with a course of levofloxacin 750 mg daily. Patient contacted the office yesterday and reported that she had begun using her 's home O2 as he had been hospitalized in the month of January with COVID-19 pneumonia. Patient reported her O2 sats were in the 70s without oxygen but with application of nasal cannula at 4 L/min her O2 sats were in the low 90s. Cough was productive of green sputum according to the patient. She arrived in the emergency department on room air with O2 sats in the 70s. Patient was initially placed on facemask and then transition to nasal cannula at 6 L/min which maintained her O2 sats in the mid to high 90s. Decision was made to admit the patient for observation of oxygen requirement. Overnight nursing staff reports that patient has been stable on 4 L with O2 sats in the low 90s. However, patient is not always compliant with the oxygen choosing to take it off when using the bedside commode. Without oxygen O2 sats will decrease to the 80s and high 70s. At rest patient denies shortness of breath. Patient denies fevers or chills at home [facility] History I have reviewed the patient's past medical history: Yes Medical History: Reports:: Diabetes Mellitus Type 2, Hyperlipidemia, Hypertension *Have you ever received a pneumonia vaccine?: No *Have you received a flu vaccine this season?: No Other Medical History: Reports: Cataracts, Thyroid Disease Laterality Cases: Left: Lumpectomy Other Surgeries: Yes: Cardiac Catheterization, Tubal Ligation - *Social History Last grade of school completed: 11th or 12th Smoking Status: Never smoker Alcohol Intake: never *Occupational Status:: employed Housing: house Household Members: spouse *Travel in the last 8 weeks: None Family Hx:: No significant family history Review of Systems - Review of Systems Review of systems:: pertinent systems reviewed and negative unless documented below Exam Vital signs and Labs for Last 24 Hours: Temp Pulse Resp BP Pulse Ox 98.6 F 75 21 136/70 93 L 02/22/21 04:00 02/22/21 04:00 02/22/21 04:00 02/22/21 04:00 02/22/21 04:00 Laboratory Results - last 24 hr 02/21/21 17:46: Specimen Source r/r, O2 % 100, ABG pH 7.45, ABG pCO2 31.0 L, ABG pO2 176.3 H, ABG HCO3 21.2 L, ABG Total CO2 22.2 L, ABG O2 Saturation 99, ABG Base Excess -2.7 L, Trino Test y 02/21/21 18:10: WBC 9.0, RBC 4.49, Hgb 13.8, Hct 42.3, MCV 94.3, MCH 30.7, MCHC 32.6, RDW 13.5, Plt Count 254, MPV 9.6, Neut % (Auto) 70.1, Lymph % (Auto) 24.5, [place] % (Auto) 3.9, Eos % (Auto) 0.6, Baso % (Auto) 0.8, Neut # (Auto) 6.3, Lymph # (Auto) 2.2, [place] # (Auto) 0.4, Eos # (Auto) 0.1, Baso # (Auto) 0.1 02/21/21 18:10: Sodium 134 L, Potassium 3.8, Chloride 96 L, Carbon Dioxide 30, Anion Gap 11.8, BUN 10, Creatinine 0.50 L, Estimated Creat Clear 55, Estimated GFR 123, Est GFR ( Amer) 149, Glucose 404 H*, Calcium 9.3, Total Bilirubin 0.6, AST 33, ALT 24, Alkaline Phosphatase 68, Troponin I < 0.01, NT-Pro-B Natriuret Pep 98.7, Total Protein 6.9, Albumin 3.9, Globulin 3.0, Albumin/Globulin Ratio 1.3 02/21/21 18:10: SARS-CoV-2 (PCR) Detected A, Influenza A Untype (PCR) Not detected, Influenza Type B (PCR) Not detected 02/21/21 18:10: Procalcitonin 0.065 02/21/21 20:50: Troponin I < 0.01 02/22/21 00:40: Troponin I < 0.01 02/22/21 06:05: WBC 7.0, RBC 4.25, Hgb 12.9, Hct 39.2, MCV 92.4, MCH
[2021-02-22 07:39] VITALS: BP 122/61; PULSE 86; RESP 19; TEMP 36.6; O2SAT 84
[2021-02-22 07:41] VITALS: O2SAT 95
[2021-02-22 08:00] VITALS: PULSE 79; O2SAT 93
--- NOTE | 2021-02-22 09:06 | HMH.PHAINT ---
MEDICATION RECONCILIATION COMPLETE USING SURESCRIPTS INFO
--- NOTE | 2021-02-22 09:13 | SW/DCPLANNER ---
Addendum entered by Sariah Bergeron 02/22/21 10:10: Brina with [employer] has stated that portable conserving device O2 will be delivered to this patient and concentrator will be delivered to home. Original Note: Patient information/order for home O2 (10 L concentrator) and portable conserving device will be faxed to [facility]. I will follow up with [employer] once patient information is reviewed. Patient is planned to discharge home today.
[2021-02-23 01:21] LABS: POC Glucose,Bedside 211 (70-110)
== END 2021-02-22 12:00 | disposition home or self-care (01) | DRG 177 ==
LOC: ER 19:03 → ICU 22:09
PROVIDERS: Admitting Provider Family Medicine; Emergency Provider Family Medicine; PCP Family Medicine; Visit Provider Family Medicine
DX: U07.1 COVID-19 (principal); J96.01 Acute respiratory failure with hypoxia; E78.5 Hyperlipidemia, unspecified; I10 Essential (primary) hypertension; E11.65 Type 2 diabetes mellitus with hyperglycemia
CPT/HCPCS: 71045; 71046; 71275; 80048; 80053; 82803; 82962; 83880; 84145; 84484; 85025; 93005; 94760; 96374; 99285; C9803; Q9967; U0003; U0005

== ENCOUNTER → 2021-09-28 16:21 | Outpatient (CLI) | payer MEDICARE, OTHER, SELFPAY | PROVIDERS: PCP Family Medicine; Visit Provider Specialist | DX: G47.33 Obstructive sleep apnea (adult) (pediatric) (principal); R06.02 Shortness of breath; G47.36 Sleep related hypoventilation in conditions classified elsewhere; Z86.16 Personal history of COVID-19 | CPT/HCPCS: G0399 ==

== ENCOUNTER 2021-12-04 12:20 | Inpatient (IN) | payer MEDICARE, OTHER, SELFPAY ==
[2021-12-04] VITALS (15 sets, daily range): BP systolic 119–182; BP diastolic 49–78; PULSE 83–101; RESP 18–20; TEMP 37.2–39.3; O2SAT 89–100; BMI 45.6; BMI 42.6
--- NOTE | 2021-12-04 12:29 | XR_ITS ---
FINAL REPORT CLINICAL HISTORY: FEVER FINDINGS: PORTABLE CHEST A single portable view of the chest was obtained. The heart size is normal. There is mild pulmonary vascular congestion. The mediastinum is within normal limits. There is right lung opacity, edema or pneumonia. There is postoperative change at the right shoulder. IMPRESSION: Right lung edema or pneumonia. Reviewed, Interpreted and Dictated by Rashaad Vaughan III, MD Transcribed by Kristina Drummond Authenticated and [facility]
--- NOTE | 2021-12-04 12:36 | PC.NURSE ---
ED MD AT BEDSIDE TO EVALUATE PT
--- NOTE | 2021-12-04 12:41 | HMH.EDFEV ---
ED Disposition Clinical Impression: Pneumonia Qualifiers: Pneumonia type: due to unspecified organism Laterality: right Lung location: lower lobe of lung Qualified Code(s): J18.9 - Pneumonia, unspecified organism UTI (urinary tract infection) Qualifiers: Urinary tract infection type: site unspecified Hematuria presence: without hematuria Qualified Code(s): N39.0 - Urinary tract infection, site not specified Disposition: Admitted As Inpatient Condition on Discharge: Fair Referrals: Santy Arrington MD [Primary Care Provider] - - Critical Care Critical Care Time: No Attestation: On , the high probability of a clinically significant, sudden or life threatening deterioration of the following system(s) required my full and direct attention, intervention and personal management. The time I documented below is in addition to time spent performing reported procedures but includes the following listed in this critical care notation. Medical Decision Making - Medical Records Medical records reviewed: Yes: I reviewed the patient's medical records. - Can Inquiry Pt receiving controlled substance: No Vital Signs: 12/04/21 12:18 12/04/21 13:01 12/04/21 13:35 Temperature 100.0 F H Temperature Source Oral Pulse Rate 85 87 Pulse Rate [Brachial] 90 Respiratory Rate 20 Blood Pressure 125/51 L 141/60 H Blood Pressure [Left Arm] 133/57 L Blood Pressure Mean 75 69 Blood Pressure Mean [Left Arm] 82 Blood Pressure Source [Left Arm] Automatic Cuff Blood Pressure Position [Left Arm] Supine 02 Sat by Pulse Oximetry 97 92 L 93 L Oxygen Delivery Method Nasal Cannula Oxygen Flow Rate (LPM) 3 12/04/21 14:02 12/04/21 14:57 Temperature Temperature Source Pulse Rate 83 88 Pulse Rate [Brachial] Respiratory Rate 18 Blood Pressure 135/51 L 159/74 H Blood Pressure [Left Arm] Blood Pressure Mean 62 96 Blood Pressure Mean [Left Arm] Blood Pressure Source [Left Arm] Blood Pressure Position [Left Arm] 02 Sat by Pulse Oximetry 94 L 91 L Oxygen Delivery Method Room Air Oxygen Flow Rate (LPM) - Lab Data Lab results reviewed: Yes: I reviewed the patient's lab results. Lab Results 12/04/21 12:25: WBC 16.2 H, RBC 4.28, Hgb 12.9, Hct 37.1, MCV 86.6, MCH 30.0, MCHC 34.7, RDW 12.8, Plt Count 127 L, MPV 9.8, Neut % (Auto) 74.8, Lymph % (Auto) 20.9, [place] % (Auto) 3.6, Eos % (Auto) 0.3, Baso % (Auto) 0.4, Neut # (Auto) 12.1 H, Lymph # (Auto) 3.4, [place] # (Auto) 0.6, Eos # (Auto) 0.1, Baso # (Auto) 0.1, Total Counted 100, Neutrophils % (Manual) 66, Band Neutrophils % 7.0, Lymphocytes % (Manual) 27, Platelet Estimate Slight decrease, RBC Morphology Normal 12/04/21 12:25: Sodium 131 L, Potassium 3.2 L, Chloride 95 L, Carbon Dioxide 26, Anion Gap 13.2, BUN 22 H, Creatinine 0.70, Estimated Creat Clear 54, Estimated GFR 83, Est GFR ( Amer) 101, Glucose 174 H, Calcium 8.5, Total Bilirubin 1.2, AST 46 H, ALT 25, Alkaline Phosphatase 75, Total Protein 6.6, Albumin 3.7, Globulin 2.9, Albumin/Globulin Ratio 1.3 12/04/21 12:25: Lactate 1.4 12/04/21 12:25: SARS-CoV-2 (PCR) Not detected, Influenza A Untype (PCR) Not detected, Influenza Type B (PCR) Not detected 12/04/21 12:25: Ammonia 27 12/04/21 12:25: NT-Pro-B Natriuret Pep 4660 H 12/04/21 13:04: Specimen Source Right radial, O2 % 21, ABG pH 7.55 H, ABG pCO2 26.5 L, ABG pO2 74.7 L, ABG HCO3 22.4, ABG Total CO2 23.2, ABG O2 Saturation 96, ABG Base Excess 0.0, Trino Test Acceptable 12/04/21 14:00: Urine Color Yellow, Urine Appearance Clear, Urine pH 6.0, Ur Specific [place] 1.020, Urine Protein 2+, Urine Glucose (UA) Negative, Urine Ketones Negative, Urine Blood 2+, Urine Nitrate Positive, Urine Bilirubin 1+ A, Urine Urobilinogen 1.0, Ur Leukocyte Esterase 2+ A, Urine RBC 3-5, Urine WBC Tntc A, Ur Squamous Epith Cells None, Urine Bacteria 1+ Result diagrams: 12/04/21 12:25 12/04/21 12:25 Orders (Tests/Meds): ED MEDICATIONS Generic Name Dose Route Start Last Admin
[2021-12-04 12:44] LABS: Coronavirus 19, PCR Not Detected (NotDetected); Influenza A, PCR Not Detected (NotDetected); Influenza B, PCR Not Detected (NotDetected)
--- NOTE | 2021-12-04 12:45 | PC.NURSE ---
XR AT BEDSIDE
[2021-12-04 12:50] LABS: Alanine Aminotransferase 25 U/L (12-78); Albumin Level 3.7 g/dl (3.5-5.0); Albumin/Globulin Ratio 1.3 (1.1-1.8); Alkaline Phosphatase 75 U/L (38-126); Anion Gap 13.2 mEq/L (5-15); Aspartate Amino Transferase 46 U/L (14-36); Bilirubin,Total 1.2 mg/dl (0.2-1.3); Blood Urea Nitrogen 22 mg/dl (7-17); Calcium 8.5 mg/dl (8.4-10.2); Carbon Dioxide 26 mmol/L (22.0-30.0); Chloride 95 mmol/L (98-107); Creatinine Clearance Estimated 54 mL/min (50-200); Estimated Glomerular Filt Rate 83 ml/min (>60); GFR (African American) 101 ML/MIN (>60); Globulin 2.9 g/dL (1.3-3.2); Glucose 174 mg/dl (74-100); Potassium 3.2 mmoL/L (3.5-5.1); Sodium 131 mmol/L (136-145); Total Protein,Serum 6.6 g/dl (6.3-8.2)
[2021-12-04 12:51] LABS: Lactic Acid 1.4 mmol/L (0.7-2.1)
--- NOTE | 2021-12-04 12:51 | PC.NURSE ---
BLANKET PROVIDED, FAMILY AT BEDSIDE.
[2021-12-04 12:52] LABS: Basophils # 0.1 K/mm3 (0-0.2); Basophils % 0.4 % (0.1-2.0); Eosinophils # 0.1 K/mm3 (0.0-0.4); Eosinophils % 0.3 % (0.1-12.0); Hematocrit 37.1 % (37.0-47.0); Hemoglobin 12.9 g/dL (12.2-16.2); Lymphocytes # 3.4 K/mm3 (0.7-4.5); Lymphocytes % 20.9 % (10-50); Mean Corpuscular HGB Conc 34.7 g/dL (31.8-35.4); Mean Corpuscular Volume 86.6 fl (81-99); Mean Platelet Volume 9.8 fl (7.4-10.4); Monocytes # 0.6 K/mm3 (0.1-1.0); Monocytes % 3.6 % (1.7-9.3); Neutrophils # 12.1 K/mm3 (1.8-7.8); Neutrophils % 74.8 % (37.0-80.0); Platelet Count 127 K/mm3 (142-424); Red Blood Count 4.28 M/mm3 (4.20-5.40); Red Cell Distribution Width 12.8 % (11.5-17.5); White Blood Count 16.2 K/mm3 (4.8-10.8)
[2021-12-04 12:54] LABS: MANUAL DIFFERENTIAL MANUAL DIFFERENTIAL (MANUAL DIFF)
[2021-12-04 13:03] LABS: Lymphocytes % 27 % (10-50); Neutrophils % 66 % (42-76); Platelet Estimate Slight Decrease; RBC Morphology Normal; Total Cells Counted 100
[2021-12-04 13:34] LABS: ABG HCO3 22.4 mmhg (22.0-26.0); ABG Oxygen Saturation 96 % (90-100); ABG PCO2 26.5 mmhg (35.0-45.0); ABG PO2 74.7 mmhg (80-100); ABG TCO2 23.2 mmhg (23-27)
--- NOTE | 2021-12-04 13:35 | PC.NURSE ---
assited pt to the restrooom and them ambulate back to the bed
[2021-12-04 13:36] LABS: Allen's Test Acceptable; Oxygen 21 %; Source Right Radial
[2021-12-04 13:37] LABS: ABG PH 7.55 mmol/L (7.35-7.45)
--- NOTE | 2021-12-04 13:39 | PC.NURSE ---
notified PRERNA MARADIAGA of abd resultst
[2021-12-04 13:49] LABS: Ammonia 27 umol/L (9-30)
--- NOTE | 2021-12-04 14:14 | PC.NURSE ---
Obtained UA with straight cath at this time. No issues, pt requesting water and MD advised that would be ok. Pt provided with glass of water at this time.
[2021-12-04 14:23] LABS: Microscopic,Cath URINE MICROSCOPIC (MICROSCOPIC)
[2021-12-04 14:26] LABS: Appearance,Urine/Cath CLEAR (Clear); Blood, Urine/Cath 2+ (Negative); Color,Urine/Cath YELLOW (Yellow); Glucose,Urine/Cath (UA) Negative (Negative); Ketones,Urine/Cath Negative (Negative); Leukocyte Esterase,Cath 2+ (Negative); Nitrate,Cath POSITIVE (Negative); Protein,Urine/Cath 2+ (Negative)
[2021-12-04 14:31] LABS: Bilirubin,Cath 1+ (Negative)
[2021-12-04 14:39] LABS: Bacteria,Urine/Cath 1+ /lpf; WBC,Urine/Cath TNTC #/hpf (0-3)
[2021-12-04 15:22] LABS: NT Pro Brain Natriuretic Pep. 4660 pg/mL (0-125)
--- NOTE | 2021-12-04 15:22 | PC.NURSE ---
Updated pt and on POC. Let them know Dr. Zarate had been paged for potential admission
--- NOTE | 2021-12-04 15:28 | PC.NURSE ---
PRERNA MARADIAGA speaking with Dr. Zarate who is head and neck surgeon for service pts
--- NOTE | 2021-12-04 15:33 | PC.NURSE ---
MD at bedside discussing POC
--- NOTE | 2021-12-04 15:34 | PC.NURSE ---
Notified care management of admission
--- NOTE | 2021-12-04 15:48 | PC.NURSE ---
PT REPOSITIONED IN BED, SON AT BEDSIDE. NO FURTHER NEEDS AT THIS TIME
--- NOTE | 2021-12-04 16:01 | PC.NURSE ---
PT UNABLE TO VERIFY MEDICATION LIST
--- NOTE | 2021-12-04 16:42 | PC.NURSE ---
ASSISTED UP TO BR
--- NOTE | 2021-12-04 16:45 | PC.NURSE ---
per greenhouse staff pt boarding in ER at this time until a bed is available
--- NOTE | 2021-12-04 16:49 | PC.NURSE ---
PT GIVEN A RECLINER TO SIT UP IN, FAMILY AT BEDSIDE. NO FURTHER NEEDS AT THIS TIME
--- NOTE | 2021-12-04 17:03 | PC.NURSE ---
pt up sitting in chair, went in and updated and asked pt if she would like something to eat. Pt advised she liked to try some chicken noodle soup, jello and iced tea. Called dietary and requested tray.
--- NOTE | 2021-12-04 17:04 | PC.NURSE ---
patient also requested b/p be removed at this time because it was bother her. Removed b/p cuff
--- NOTE | 2021-12-04 17:26 | PC.NURSE ---
Provided pt with supper tray, sitting up in chair, updated pt and on room status and that her room would be ready sometime after shift change. Pt and agreeable with POC and have no other needs at this time.
--- NOTE | 2021-12-04 17:50 | HMH.HP ---
*Admission Date: 12/04/21 *Chief complaint: Cough and altered mental status *History of present illness: Ms. Neil is a 66-year-old female with a history of hypertension, type 2 diabetes mellitus, arthritis, hypothyroidism, and hyperlipidemia who presented to [facility] emergency room at the insistence of her due to altered mental status. She states she has not been feeling well for the past 3 to 4 days. Subjectively she feels like she has had a fever and her most outstanding symptom is a cough. She has not been eating or drinking very well at home but denies at this time any nausea or vomiting or diarrhea. Has been does help with the history. Evaluation in the emergency room chest x-rayShowed right lung edema or pneumonia. Laboratory data showed a urinary tract infection, H&H were 12.9 and 37.1 with a white blood cell count of 16,200. ABGs showed a pH of 7.55 PCO2 26.5 PO2 of 24.7 and a bicarb of 22.4. Blood chemistries show sodium of 131 and potassium of 3.2. BUN was 22 with a creatinine of 0.7. BNP is 4660. With evaluation temperature in the emergency room was 100 Was started on Rocephin and Zithromax and received a 500 mL of IV fluids. She was also given potassium for Hypokalemia. At the time of this exam patient is residing in the emergency room awaiting a bed on the medical floor. is with her. She is chilling and warm blankets are added. She denies any chest pain or shortness of breath. She states she was told she had a urinary tract infection. [facility] History Medical History: Reports:: Diabetes Mellitus Type 2, Hyperlipidemia, Hypertension *Have you ever received a pneumonia vaccine?: No *Have you received a flu vaccine this season?: No Other Medical History: Reports: Cataracts, Thyroid Disease Laterality Cases: Left: Lumpectomy Other Surgeries: Yes: Cardiac Catheterization, Tubal Ligation - *Social History Smoking Status: Never smoker Alcohol Intake: never *Occupational Status:: employed Housing: house Household Members: spouse *Travel in the last 8 weeks: None Family Hx:: Coronary Artery Disease Review of Systems - Constitutional Reports chills, Reports fever(s), Reports lack of energy - Eyes Denies change in vision - ENT Denies dizziness, Denies ear pain, Denies sore throat - *Cardiovascular Denies chest pain, Denies shortness of breath, Denies leg swelling - *Respiratory Reports cough, Denies change in phlegm color, Denies coughing up blood - *Gastrointestinal Denies abdominal pain, Denies loose stools, Denies nausea, Denies vomiting - *Genitourinary Denies difficulty urinating - *Musculoskeletal Reports abnormal walking (Patient states she has had a recent fall but cannot recall when) - *Neurologic Reports confusion (Mild), Reports frequent falls, Reports headache(s), Reports weakness, Denies seizure-like activity Comments: Slow responses Meds Home Medications Medication Instructions Recorded Confirmed Type Duloxetine HCl 60 mg PO DAILY 02/21/21 12/04/21 History Gabapentin 300 mg PO TID 02/21/21 12/04/21 History Hydrocodone/Acetaminophen 1 tab PO QIDP PRN 02/21/21 12/04/21 History [Hydrocodone-Acetamin 7.5-325] Levothyroxine Sodium 100 mcg PO DAILY 02/21/21 12/04/21 History [Levothyroxine 100mcg (0.1MG) Tab] Meloxicam 15 mg PO DAILY 02/21/21 12/04/21 History Metformin HCl [Metformin 1000mg 1,000 mg PO BID 02/21/21 12/04/21 History Tablets] Pravastatin Sodium [Pravachol 20mg 20 mg PO HS 02/21/21 12/04/21 History Tablet] Triamterene/Hydrochlorothiazid 1 tab PO AMLAB 02/22/21 12/04/21 History [Triamterene-Hctz 37.5-25 mg Tb] atenoloL [Atenolol 100mg Tab] 100 mg PO DAILY 02/22/21 12/04/21 History biotin 5 mg tablet 5 mg PO DAILY 10/18/21 12/04/21 History insulin detemir U-100 100 unit/mL 3 unit SQ AM ml 10/18/21 12/04/21 History (3 mL) subcutaneous pen pioglitazone 15 mg tablet 15 mg PO DAILY tab 10/18/21 12/04/21 History A
--- NOTE | 2021-12-04 18:32 | PC.NURSE ---
1825 DR. WADDELL AT BEDSIDE
--- NOTE | 2021-12-04 20:07 | PC.NURSE ---
Report give to Shana Bustamante RN. Preparing pt to go upstairs. transfer via wheelchair
[2021-12-04 20:50] LABS: POC Glucose,Bedside 158 (70-110)
--- NOTE | 2021-12-04 21:50 | PC.NURSE ---
Pt arrived to the unit at 2014
--- NOTE | 2021-12-04 22:48 | PC.NURSE ---
Notified Dr. Cardenas of increasing confusion, increased labored breathing, drop in oxygen level despite being on 3L NC and increased prominent crackles in trupti bases of lung marks. Verbal order given for Lasix 40mg IVP x once. Repeated, verified, and faxed to pharmacy.
[2021-12-05] VITALS (7 sets, daily range): BP systolic 105–142; BP diastolic 47–76; PULSE 64–91; RESP 16–22; TEMP 36.7–37.2; O2SAT 94–98; BMI 43.2
--- NOTE | 2021-12-05 01:33 | PC.NURSE ---
IV lasix given at 2300 per [address] order from Dr[address] Cardenas. Order faxed to overnight pharmacy 4x, still not entered. [facility]watch contacted, still waiting for order to be entered into mar. Verified with HUAN Potter
--- NOTE | 2021-12-05 05:25 | PC.NURSE ---
Pt has remained confused for the majority of the shift. Has ran a fever t/o the night and has been medicated per jul with tylenol. Pt dislodged IV in right hand, new IV started to left chest. Ls diminished t/o with occassional wheezing noted. O2 remains in place at 3L NC. VSS. No acute changes or distress noted at this time, will continue to monitor.
--- NOTE | 2021-12-05 06:58 | PC.NURSE ---
Notified Dr. Cardenas of blood culture prelimary results. No new orders given at this time.
--- NOTE | 2021-12-05 07:31 | HMH.PHAVTE ---
[facility] Pharmacy VTE Monitoring - Patient Demographics Admission date: 12/04/21 Report Date: 12/05/21 Time: 07:31 Allergies/Adverse Reactions: Patient Allergies Tetanus Toxoid Allergy (Unknown, Uncoded 10/18/21 14:50) Height: 1.73 m Weight: 129.319 kg Patient Problems: Current Active Problems Acute respiratory failure with hypoxemia (Acute) Pneumonia (Acute) UTI (urinary tract infection) (Acute) Hypertension (Chronic) Type 2 diabetes mellitus (Chronic) - VTE Risk Labs: VTE Related Lab Results Hgb 12.9 g/dL (12.2-16.2) 12/04/21 12:25 Hct 37.1 % (37.0-47.0) 12/04/21 12:25 Plt Count 127 K/mm3 (142-424) L 12/04/21 12:25 BUN 22 mg/dl (7-17) H 12/04/21 12:25 Creatinine 0.70 mg/dl (0.52-1.04) 12/04/21 12:25 Estimated Creat Clear 54 mL/min (50-200) 12/04/21 12:25 Was VTE Risk Assessment Performed: Yes VTE Score: 5 VTE Risk Level: Low Risk - Prophylaxis VTE Prophylaxis Ordered?: Yes Types of VTE Prophylaxis: TEDS Knee High Location of Applied Device: Bilateral Lower Extremeties
--- NOTE | 2021-12-05 07:52 | HMH.PHAINT ---
MEDICATION RECONCILIATION COMPLETED ON PATIENT USING EXTERNAL FILL HISTORY FROM PHARMACY. -SUSIE SANTOS, THONYD
--- NOTE | 2021-12-05 07:59 | HMH.ACPN2 ---
Internal Medicine - PN: Subj *Date: 12/05/21 *Time: 07:59 Interval history: Patient has some respiratory distress during the night and received 40 of Lasix IV. She has been confused. She has had a fever as high as 102.7. She did receive Tylenol which helped. Patient states she coughed all night. She denies chest pain but is somewhat short of breath. She is oriented this morning. She states she feels horrible. She is not interested in eating. Exam Vital signs and Labs for Last 24 Hours: Temp Pulse Resp BP Pulse Ox 98.2 F 91 H 20 142/47 H 98 12/05/21 04:00 12/05/21 04:00 12/05/21 04:00 12/05/21 04:00 12/05/21 04:00 Laboratory Results - last 24 hr 12/04/21 12:25: WBC 16.2 H, RBC 4.28, Hgb 12.9, Hct 37.1, MCV 86.6, MCH 30.0, MCHC 34.7, RDW 12.8, Plt Count 127 L, MPV 9.8, Neut % (Auto) 74.8, Lymph % (Auto) 20.9, [place] % (Auto) 3.6, Eos % (Auto) 0.3, Baso % (Auto) 0.4, Neut # (Auto) 12.1 H, Lymph # (Auto) 3.4, [place] # (Auto) 0.6, Eos # (Auto) 0.1, Baso # (Auto) 0.1, Total Counted 100, Neutrophils % (Manual) 66, Band Neutrophils % 7.0, Lymphocytes % (Manual) 27, Platelet Estimate Slight decrease, RBC Morphology Normal 12/04/21 12:25: Sodium 131 L, Potassium 3.2 L, Chloride 95 L, Carbon Dioxide 26, Anion Gap 13.2, BUN 22 H, Creatinine 0.70, Estimated Creat Clear 54, Estimated GFR 83, Est GFR ( Amer) 101, Glucose 174 H, Calcium 8.5, Total Bilirubin 1.2, AST 46 H, ALT 25, Alkaline Phosphatase 75, Total Protein 6.6, Albumin 3.7, Globulin 2.9, Albumin/Globulin Ratio 1.3 12/04/21 12:25: Lactate 1.4 12/04/21 12:25: SARS-CoV-2 (PCR) Not detected, Influenza A Untype (PCR) Not detected, Influenza Type B (PCR) Not detected 12/04/21 12:25: Ammonia 27 12/04/21 12:25: NT-Pro-B Natriuret Pep 4660 H 12/04/21 13:04: Specimen Source Right radial, O2 % 21, ABG pH 7.55 H, ABG pCO2 26.5 L, ABG pO2 74.7 L, ABG HCO3 22.4, ABG Total CO2 23.2, ABG O2 Saturation 96, ABG Base Excess 0.0, Trino Test Acceptable 12/04/21 14:00: Urine Color Yellow, Urine Appearance Clear, Urine pH 6.0, Ur Specific [place] 1.020, Urine Protein 2+, Urine Glucose (UA) Negative, Urine Ketones Negative, Urine Blood 2+, Urine Nitrate Positive, Urine Bilirubin 1+ A, Urine Urobilinogen 1.0, Ur Leukocyte Esterase 2+ A, Urine RBC 3-5, Urine WBC Tntc A, Ur Squamous Epith Cells None, Urine Bacteria 1+ 12/04/21 20:32: POC Glucose 158 H I & O for Last 24 hours: Intake & Output 12/02/21 12/03/21 12/04/21 12/05/21 11:59 11:59 11:59 11:59 Intake Total 320 / 320 Output Total 1400 / 1400 Balance -1080 / -1080 Weight 285 lb 1.6 oz Microbiology Reports for the Last 24 Hours: Microbiology 12/04/21 14:00 Urine,Catheterized Urine Culture - Preliminary Gram Negative Rods 12/04/21 12:25 Blood Blood Culture - Preliminary - Constitutional no acute distress - *Routine Respiratory Exam Present: CTA bilaterally (Anteriorly and posteriorly) - *Routine Cardiovascular Exam Present: RRR - *Routine Abdominal Exam Present: soft, normoactive bowel sounds, obese. Absent: tenderness - *Routine Extremities Exam Absent: edema, calf tenderness - *Routine Neurological Exam Present: alert, oriented X3 Assessment and Plan (1) Pneumonia Status: Acute Qualifiers: Pneumonia type: due to unspecified organism Laterality: right Lung location: lower lobe of lung Qualified Code(s): J18.9 - Pneumonia, unspecified organism Category: Medical Code(s): J18.9 - Pneumonia, unspecified organism (2) UTI (urinary tract infection) Status: Acute Qualifiers: Urinary tract infection type: site unspecified Hematuria presence: without hematuria Qualified Code(s): N39.0 - Urinary tract infection, site not specified Category: Medical Code(s): N39.0 - Urinary tract infection, site not specified (3) Acute respiratory failure with hypoxemia Status: Acute Category: Medical Code(s): J96.01 - Acute respiratory fail
[2021-12-05 08:42] LABS: Hemoglobin A1C 5.9 % (4.0-6.0)
[2021-12-05 08:56] LABS: Basophils % 0.3 % (0.1-2.0); Eosinophils % 0.1 % (0.1-12.0); Hematocrit 36.7 % (37.0-47.0); Hemoglobin 12.2 g/dL (12.2-16.2); Lymphocytes # 2.9 K/mm3 (0.7-4.5); Lymphocytes % 23.6 % (10-50); Mean Corpuscular HGB Conc 33.2 g/dL (31.8-35.4); Mean Corpuscular Hemoglobin 29.5 pg (27.0-31.2); Mean Corpuscular Volume 88.8 fl (81-99); Mean Platelet Volume 9.9 fl (7.4-10.4); Monocytes # 0.5 K/mm3 (0.1-1.0); Monocytes % 4.1 % (1.7-9.3); Neutrophils # 8.7 K/mm3 (1.8-7.8); Neutrophils % 71.9 % (37.0-80.0); Platelet Count 116 K/mm3 (142-424); Red Blood Count 4.13 M/mm3 (4.20-5.40); White Blood Count 12.2 K/mm3 (4.8-10.8)
[2021-12-05 09:00] LABS: Anion Gap 8.1 mEq/L (5-15); Blood Urea Nitrogen 21 mg/dl (7-17); Calcium 8.4 mg/dl (8.4-10.2); Carbon Dioxide 29 mmol/L (22.0-30.0); Chloride 100 mmol/L (98-107); Creatinine Clearance Estimated 54 mL/min (50-200); Estimated Glomerular Filt Rate 83 ml/min (>60); GFR (African American) 101 ML/MIN (>60); Glucose 158 mg/dl (74-100); Potassium 3.1 mmoL/L (3.5-5.1); Sodium 134 mmol/L (136-145)
[2021-12-05 12:07] LABS: POC Glucose,Bedside 144 (70-110)
--- NOTE | 2021-12-05 14:55 | PC.NURSE ---
received report from Eunice Roman RN. Pt now in 213.
--- NOTE | 2021-12-05 18:19 | PC.NURSE ---
shift summary: Pt arrived to room 213 this afternoon from the unit. She has had an uneventful afternoon and has been pleasant. GCS 15. Not on tele. VSS. Wears 3L NC cont. No c/o dyspnea. Received 1 dose of [place] 5/325 for chronic back pain. Reports that she takes [place] 7.5/325 @ home. Gets OOB with assist x 1. No BM. Spouse @ BS.
[2021-12-05 20:41] LABS: POC Glucose,Bedside 122 (70-110)
[2021-12-06 04:00] VITALS: BP 110/53; PULSE 66; RESP 18; TEMP 37; O2SAT 95
--- NOTE | 2021-12-06 04:00 | PC.NURSE ---
pt complaint of pain through the night in back and head, pt stated she fell at home prior to admission, pt felt concerned she hit her head when she fell, pt is alert and oriented x4, VSS, FSBS remain <150; pt remains on room air with 02 sats >95%; lung sounds clear to diminished, no changes from previous assessment, no other issues or concerns at this time.
[2021-12-06 05:00] VITALS: BMI 43.4
[2021-12-06 05:18] LABS: POC Glucose,Bedside 124 (70-110)
--- NOTE | 2021-12-06 06:58 | CT_ITS ---
FINAL REPORT CLINICAL HISTORY: fall at home 4 days ago COMPARISON: 05/01/2019 FINDINGS: Axial images of the head were obtained without contrast. Coronal reformatted images were also obtained.This study was performed with techniques to keep radiation doses as low as reasonably achievable (ALARA). Individualized dose reduction techniques using automated exposure control or adjustment of mA and/or kV according to the patient''s size were employed. There is no evidence of intracranial hemorrhage or mass. The ventricular size is within normal limits. There is no evidence of shift of the midline structures. No abnormal extra axial fluid collection is identified. No skull abnormality is seen on the bone window images. IMPRESSION: No acute intracranial abnormality. Reviewed, Interpreted and Dictated by Rashaad Vaughan III, MD Transcribed by Clair Pollard Authenticated and [facility]
[2021-12-06 06:59] LABS: POC Glucose,Bedside 87 (70-110)
[2021-12-06 07:35] LABS: Basophils # 0.1 K/mm3 (0-0.2); Basophils % 0.6 % (0.1-2.0); Eosinophils # 0.1 K/mm3 (0.0-0.4); Eosinophils % 0.9 % (0.1-12.0); Hematocrit 35.7 % (37.0-47.0); Hemoglobin 12.4 g/dL (12.2-16.2); Lymphocytes # 1.9 K/mm3 (0.7-4.5); Lymphocytes % 24.6 % (10-50); Mean Corpuscular HGB Conc 34.9 g/dL (31.8-35.4); Mean Corpuscular Hemoglobin 30.2 pg (27.0-31.2); Mean Corpuscular Volume 86.6 fl (81-99); Mean Platelet Volume 10.7 fl (7.4-10.4); Monocytes # 0.8 K/mm3 (0.1-1.0); Monocytes % 10.3 % (1.7-9.3); Neutrophils # 4.9 K/mm3 (1.8-7.8); Neutrophils % 63.7 % (37.0-80.0); Platelet Count 129 K/mm3 (142-424); Red Blood Count 4.12 M/mm3 (4.20-5.40); Red Cell Distribution Width 13.2 % (11.5-17.5); White Blood Count 7.7 K/mm3 (4.8-10.8)
[2021-12-06 08:00] VITALS: BP 109/51; PULSE 78; RESP 16; TEMP 36.9; O2SAT 90
[2021-12-06 08:00] LABS: Alanine Aminotransferase 25 U/L (12-78); Albumin Level 3.1 g/dl (3.5-5.0); Albumin/Globulin Ratio 1.2 (1.1-1.8); Alkaline Phosphatase 63 U/L (38-126); Anion Gap 9.9 mEq/L (5-15); Aspartate Amino Transferase 54 U/L (14-36); Bilirubin,Total 0.6 mg/dl (0.2-1.3); Blood Urea Nitrogen 24 mg/dl (7-17); Calcium 8.3 mg/dl (8.4-10.2); Carbon Dioxide 26 mmol/L (22.0-30.0); Chloride 100 mmol/L (98-107); Creatinine Clearance Estimated 54 mL/min (50-200); Estimated Glomerular Filt Rate 83 ml/min (>60); GFR (African American) 101 ML/MIN (>60); Globulin 2.5 g/dL (1.3-3.2); Glucose 114 mg/dl (74-100); Potassium 3.9 mmoL/L (3.5-5.1); Sodium 132 mmol/L (136-145); Total Protein,Serum 5.6 g/dl (6.3-8.2)
--- NOTE | 2021-12-06 08:49 | HMH.ACPN2 ---
Internal Medicine - PN: Subj *Date: 12/06/21 *Time: 08:49 Interval history: Patient feels better today. States she did sleep some during the night. She does not recall much of yesterday. She had a CT of her head this morning due to reported fall at home at which time she hit her head. She walks to the bathroom independently. She states she has some shortness of breath. She denies chest pain. Laboratory data this a.m. shows a normal white blood cell count of 7700. Blood chemistries show sodium of 132 and potassium of 3.9. Head CT is pending Blood and urine cultures growing gram-negative rods. ID pending Exam Vital signs and Labs for Last 24 Hours: Temp Pulse Resp BP Pulse Ox 98.6 F 66 18 110/53 L 95 12/06/21 04:00 12/06/21 04:00 12/06/21 04:00 12/06/21 04:00 12/06/21 04:00 Laboratory Results - last 24 hr 12/05/21 08:22: WBC 12.2 H, RBC 4.13 L, Hgb 12.2, Hct 36.7 L, MCV 88.8, MCH 29.5, MCHC 33.2, RDW 13.0, Plt Count 116 L, MPV 9.9, Neut % (Auto) 71.9, Lymph % (Auto) 23.6, [place] % (Auto) 4.1, Eos % (Auto) 0.1, Baso % (Auto) 0.3, Neut # (Auto) 8.7 H, Lymph # (Auto) 2.9, [place] # (Auto) 0.5, Eos # (Auto) 0.0, Baso # (Auto) 0.0 12/05/21 08:22: Sodium 134 L, Potassium 3.1 L, Chloride 100, Carbon Dioxide 29, Anion Gap 8.1, BUN 21 H, Creatinine 0.70, Estimated Creat Clear 54, Estimated GFR 83, Est GFR ( Amer) 101, Glucose 158 H, Calcium 8.4 12/05/21 11:30: POC Glucose 144 H 12/05/21 16:43: POC Glucose 122 H 12/05/21 20:54: POC Glucose 124 H 12/06/21 06:28: POC Glucose 87 12/06/21 07:25: WBC 7.7 D, RBC 4.12 L, Hgb 12.4, Hct 35.7 L, MCV 86.6, MCH 30.2, MCHC 34.9, RDW 13.2, Plt Count 129 L, MPV 10.7 H, Neut % (Auto) 63.7, Lymph % (Auto) 24.6, [place] % (Auto) 10.3 H, Eos % (Auto) 0.9, Baso % (Auto) 0.6, Neut # (Auto) 4.9, Lymph # (Auto) 1.9, [place] # (Auto) 0.8, Eos # (Auto) 0.1, Baso # (Auto) 0.1 12/06/21 07:25: Sodium 132 L, Potassium 3.9 D, Chloride 100, Carbon Dioxide 26, Anion Gap 9.9, BUN 24 H, Creatinine 0.70, Estimated Creat Clear 54, Estimated GFR 83, Est GFR ( Amer) 101, Glucose 114 H D, Calcium 8.3 L, Total Bilirubin 0.6, AST 54 H, ALT 25, Alkaline Phosphatase 63, Total Protein 5.6 L, Albumin 3.1 L, Globulin 2.5, Albumin/Globulin Ratio 1.2 I & O for Last 24 hours: Intake & Output 12/03/21 12/04/21 12/05/21 12/06/21 11:59 11:59 11:59 11:59 Intake Total 560 / 560 240 / 240 Output Total 1900 / 1900 Balance -1340 / -1340 240 / 240 Weight 285 lb 1.6 oz 286 lb 6.4 oz Microbiology Reports for the Last 24 Hours: Microbiology 12/05/21 14:15 Sputum - Expectorated Sputum Gram Stain - Final 12/05/21 14:15 Sputum - Expectorated Sputum Sputum Culture - Preliminary 12/04/21 12:25 Blood Blood Culture - Preliminary Gram Negative Rods 12/04/21 14:00 Urine,Catheterized Urine Culture - Preliminary Gram Negative Rods - Constitutional no acute distress Comments: Conversant this AM. - *Routine Respiratory Exam Present: diminished air movement (Bilaterally) - *Routine Cardiovascular Exam Present: RRR - *Routine Abdominal Exam Present: soft, normoactive bowel sounds, obese. Absent: tenderness - *Routine Extremities Exam Absent: edema, calf tenderness Assessment and Plan (1) Pneumonia Status: Acute Qualifiers: Pneumonia type: due to unspecified organism Laterality: right Lung location: lower lobe of lung Qualified Code(s): J18.9 - Pneumonia, unspecified organism Category: Medical Code(s): J18.9 - Pneumonia, unspecified organism (2) UTI (urinary tract infection) Status: Acute Qualifiers: Urinary tract infection type: site unspecified Hematuria presence: without hematuria Qualified Code(s): N39.0 - Urinary tract infection, site not specified Category: Medical Code(s): N39.0 - Urinary tract infection, site not specified (3) Acute respiratory failure with hypoxemia Status: A
[2021-12-06 12:00] VITALS: BP 120/54; PULSE 65; RESP 16; TEMP 36.6; O2SAT 98
--- NOTE | 2021-12-06 15:24 | PC.NURSE ---
patient has done well in good spirits. rings out as needed. has been at bedside. sits up and can walk with stand by assistance. tolerating diet well. some complaints of pain in head, as well as generalized body pain. new iv placed in r wrist 20 gauge. 2 sticks per radha luis and 1 per jing rn. no other concerns noted. education done on meds, and plan of care. lungs clear.
[2021-12-06 16:00] VITALS: BP 135/76; PULSE 64; RESP 16; TEMP 36.4; O2SAT 96
--- NOTE | 2021-12-06 16:25 | PC.NURSE ---
Received report from Ronnie Nowak RN. Rounded on pt, pt requests to get in shower w/ help of her . PIV saline locked and nursing staff has set up shower supplies for patient.
[2021-12-06 20:00] VITALS: BP 97/53; PULSE 65; RESP 17; TEMP 36.6; O2SAT 96
[2021-12-06 22:05] LABS: POC Glucose,Bedside 98 (70-110)
[2021-12-07] VITALS (7 sets, daily range): BP systolic 91–138; BP diastolic 42–75; PULSE 64–87; RESP 16–20; TEMP 36.6–36.9; O2SAT 91–98; BMI 43.3; BMI 43.1
[2021-12-07 03:39] LABS: POC Glucose,Bedside 147 (70-110)
[2021-12-07 03:39] LABS: POC Glucose,Bedside 84 (70-110)
--- NOTE | 2021-12-07 04:28 | PC.NURSE ---
Pt is alert and oriented x4, pt has been up walking in room independently, pt has been sleeping with CPAP, O2 sat >90%. Pt has complained of pain one time this shift, treated prn per mar. Pt lung sounds are diminished but clear. Pt has gotten up to toilet. Pt has had no complaints of SOB.
--- NOTE | 2021-12-07 08:45 | HMH.ACPN2 ---
Internal Medicine - PN: Subj *Date: 12/07/21 *Time: 08:45 Interval history: Patient states she is still tired this morning. She is complaining of some low back pain and some mild abdominal pain. She states she slept off and on throughout the night and did eat some breakfast. Exam Vital signs and Labs for Last 24 Hours: Temp Pulse Resp BP Pulse Ox 98.4 F 78 16 109/51 L 96 12/07/21 08:00 12/07/21 08:00 12/07/21 08:00 12/07/21 08:00 12/07/21 08:00 Laboratory Results - last 24 hr 12/06/21 12:12: POC Glucose 84 12/06/21 17:47: POC Glucose 147 H 12/06/21 20:33: POC Glucose 98 I & O for Last 24 hours: Intake & Output 12/04/21 12/05/21 12/06/21 12/07/21 11:59 11:59 11:59 11:59 Intake Total 560 / 560 960 / 960 1170 / 1170 Output Total 1900 / 1900 Balance -1340 / -1340 960 / 960 1170 / 1170 Weight 285 lb 1.6 oz 286 lb 6.4 oz 285 lb 14.4 oz Microbiology Reports for the Last 24 Hours: Microbiology 12/05/21 14:15 Sputum - Expectorated Sputum Gram Stain - Final 12/05/21 14:15 Sputum - Expectorated Sputum Sputum Culture - Preliminary 12/04/21 12:25 Blood Blood Culture - Preliminary NO GROWTH AFTER 48 HOURS 12/04/21 14:00 Urine,Catheterized Urine Culture - Preliminary Escherichia coli 12/04/21 12:25 Blood Blood Culture - Preliminary Escherichia coli - Constitutional no acute distress - *Routine Respiratory Exam Present: CTA bilaterally - *Routine Cardiovascular Exam Present: RRR - *Routine Abdominal Exam Present: soft, normoactive bowel sounds, tenderness Comments: lower abdomen - *Routine Extremities Exam Absent: cyanosis, clubbing, edema - *Routine Skin Exam Present: warm. Absent: rash - *Routine Neurological Exam Present: alert, oriented X3 Assessment and Plan (1) Pneumonia Status: Acute Qualifiers: Pneumonia type: due to unspecified organism Laterality: right Lung location: lower lobe of lung Qualified Code(s): J18.9 - Pneumonia, unspecified organism Category: Medical Code(s): J18.9 - Pneumonia, unspecified organism (2) UTI (urinary tract infection) Status: Acute Qualifiers: Urinary tract infection type: site unspecified Hematuria presence: without hematuria Qualified Code(s): N39.0 - Urinary tract infection, site not specified Category: Medical Code(s): N39.0 - Urinary tract infection, site not specified (3) Acute respiratory failure with hypoxemia Status: Acute Category: Medical Code(s): J96.01 - Acute respiratory failure with hypoxia (4) Hypertension Status: Chronic Category: Medical Code(s): I10 - Essential (primary) hypertension (5) Type 2 diabetes mellitus Status: Chronic Category: Medical Code(s): E11.9 - Type 2 diabetes mellitus without complications (6) Bacteremia Status: Acute Category: Medical Code(s): R78.81 - Bacteremia (7) E. coli UTI Status: Acute Category: Medical Code(s): N39.0 - Urinary tract infection, site not specified; B96.20 - Unspecified Escherichia coli [E. coli] as the cause of diseases classified elsewhere - Assessment and plan all Dx Assessment and Plan for all problems:: Her white count has normalized and urine culture/blood cultures are positive for E. coli which is sensitive to Levaquin. Will discuss further care with Dr. Zarate.
[2021-12-07 12:35] LABS: POC Glucose,Bedside 89 (70-110)
--- NOTE | 2021-12-07 12:48 | PC.NURSE ---
PT IS SITTING UP IN THE CHAIR VISITING WITH FAMILY. ALERT AND ORIENTED X4. PT HAS BEEN AMBULATING TO THE BATHROOM. EATING AND DRINKING FAIR. LUNG SOUNDS CLEAR. ABDOMEN SOFT/NON TENDER WITH ACTIVE BOWEL SOUNDS. VSS. WILL CONTINUE TO MONITOR.
[2021-12-07 17:57] LABS: POC Glucose,Bedside 91 (70-110)
[2021-12-07 21:52] LABS: POC Glucose,Bedside 146 (70-110)
[2021-12-08] VITALS: BP 150/80; PULSE 66; RESP 20; TEMP 36.5; O2SAT 97
[2021-12-08 00:32] LABS: POC Glucose,Bedside 95 (70-110)
[2021-12-08 04:00] VITALS: BP 124/49; PULSE 66; RESP 18; TEMP 36.5; O2SAT 98
[2021-12-08 04:37] VITALS: BMI 42.9
--- NOTE | 2021-12-08 04:50 | PC.NURSE ---
Patient is A&Ox4. Patient has tolerated room air with sats above 90%. Lung sounds clear. Patient complains of headache medicated per mar. Patient also complains of constipation. No other needs voiced.
[2021-12-08 05:47] LABS: POC Glucose,Bedside 126 (70-110)
[2021-12-08 08:00] VITALS: BP 139/77; PULSE 73; RESP 16; TEMP 36.6; O2SAT 96
--- NOTE | 2021-12-08 08:46 | HMH.ACPN2 ---
Internal Medicine - PN: Subj *Date: 12/08/21 *Time: 08:46 Exam Vital signs and Labs for Last 24 Hours: Temp Pulse Resp BP Pulse Ox 97.7 F 66 18 124/49 L 98 12/08/21 04:00 12/08/21 04:00 12/08/21 04:00 12/08/21 04:00 12/08/21 04:00 Laboratory Results - last 24 hr 12/07/21 06:18: POC Glucose 95 12/07/21 11:51: POC Glucose 89 12/07/21 16:28: POC Glucose 91 12/07/21 20:47: POC Glucose 146 H 12/08/21 05:33: POC Glucose 126 H I & O for Last 24 hours: Intake & Output 12/05/21 12/06/21 12/07/21 12/08/21 23:59 23:59 23:59 23:59 Intake Total 800 / 800 1890 / 1890 840 / 840 148 / 148 Output Total 1900 / 1900 Balance -1100 / -1100 1890 / 1890 840 / 840 148 / 148 Weight 129.319 kg 129.909 kg 129 kg 128.457 kg Microbiology Reports for the Last 24 Hours: Microbiology 12/05/21 14:15 Sputum - Expectorated Sputum Gram Stain - Final 12/05/21 14:15 Sputum - Expectorated Sputum Sputum Culture - Final Normal Respiratory Adia 12/04/21 14:00 Urine,Catheterized Urine Culture - Final Escherichia coli 12/04/21 12:25 Blood Blood Culture - Final Escherichia coli Assessment and Plan (1) Pneumonia Status: Acute Qualifiers: Pneumonia type: due to unspecified organism Laterality: right Lung location: lower lobe of lung Qualified Code(s): J18.9 - Pneumonia, unspecified organism Category: Medical Code(s): J18.9 - Pneumonia, unspecified organism (2) UTI (urinary tract infection) Status: Acute Qualifiers: Urinary tract infection type: site unspecified Hematuria presence: without hematuria Qualified Code(s): N39.0 - Urinary tract infection, site not specified Category: Medical Code(s): N39.0 - Urinary tract infection, site not specified (3) Acute respiratory failure with hypoxemia Status: Acute Category: Medical Code(s): J96.01 - Acute respiratory failure with hypoxia (4) Hypertension Status: Chronic Category: Medical Code(s): I10 - Essential (primary) hypertension (5) Type 2 diabetes mellitus Status: Chronic Category: Medical Code(s): E11.9 - Type 2 diabetes mellitus without complications (6) Bacteremia Status: Acute Category: Medical Code(s): R78.81 - Bacteremia (7) E. coli UTI Status: Acute Category: Medical Code(s): N39.0 - Urinary tract infection, site not specified; B96.20 - Unspecified Escherichia coli [E. coli] as the cause of diseases classified elsewhere The patient's infection will respond to the chosen ABx?: Yes (E. COLI IN BLOOD AND URINE CULTURES, LEVAQUIN SUSCEPTIBLE) Is the patient receiving the right drug, dose, and route?: Yes Could a more targeted ABx be ordered?: No
[2021-12-08 08:51] LABS: Basophils # 0.1 K/mm3 (0-0.2); Basophils % 0.7 % (0.1-2.0); Eosinophils # 0.1 K/mm3 (0.0-0.4); Eosinophils % 1.1 % (0.1-12.0); Hematocrit 39.2 % (37.0-47.0); Hemoglobin 13.1 g/dL (12.2-16.2); Lymphocytes # 3.8 K/mm3 (0.7-4.5); Lymphocytes % 42.8 % (10-50); Mean Corpuscular HGB Conc 33.5 g/dL (31.8-35.4); Mean Corpuscular Hemoglobin 28.9 pg (27.0-31.2); Mean Corpuscular Volume 86.3 fl (81-99); Mean Platelet Volume 8.8 fl (7.4-10.4); Monocytes # 0.4 K/mm3 (0.1-1.0); Monocytes % 4.3 % (1.7-9.3); Neutrophils # 4.5 K/mm3 (1.8-7.8); Neutrophils % 51.2 % (37.0-80.0); Platelet Count 216 K/mm3 (142-424); Red Blood Count 4.54 M/mm3 (4.20-5.40); Red Cell Distribution Width 13.5 % (11.5-17.5); White Blood Count 8.8 K/mm3 (4.8-10.8)
--- NOTE | 2021-12-08 08:53 | HMH.ACPN2 ---
Internal Medicine - PN: Subj *Date: 12/08/21 *Time: 08:59 Interval history: She is feeling well and doing well. She was able to rest last night. She is very anxious to go home. We discussed her antibiotics and potassium. She sees Dr. Lopez even after his move to [place], but states that she would like to follow-up with me from this hospitalization. I will plan to see her next week. She will need blood work drawn to check on her potassium level. I have discharged her on 20 mEq daily. Exam Vital signs and Labs for Last 24 Hours: Temp Pulse Resp BP Pulse Ox 97.9 F 73 16 139/77 96 12/08/21 08:00 12/08/21 08:00 12/08/21 08:00 12/08/21 08:00 12/08/21 08:00 Laboratory Results - last 24 hr 12/07/21 06:18: POC Glucose 95 12/07/21 11:51: POC Glucose 89 12/07/21 16:28: POC Glucose 91 12/07/21 20:47: POC Glucose 146 H 12/08/21 05:33: POC Glucose 126 H I & O for Last 24 hours: Intake & Output 12/05/21 12/06/21 12/07/21 12/08/21 11:59 11:59 11:59 11:59 Intake Total 560 / 560 960 / 960 1410 / 1410 988 / 988 Output Total 1900 / 1900 Balance -1340 / -1340 960 / 960 1410 / 1410 988 / 988 Weight 285 lb 1.6 oz 286 lb 6.4 oz 284 lb 6.341 oz 283 lb 3.2 oz Microbiology Reports for the Last 24 Hours: Microbiology 12/05/21 14:15 Sputum - Expectorated Sputum Gram Stain - Final 12/05/21 14:15 Sputum - Expectorated Sputum Sputum Culture - Final Normal Respiratory Adia 12/04/21 14:00 Urine,Catheterized Urine Culture - Final Escherichia coli 12/04/21 12:25 Blood Blood Culture - Final Escherichia coli - Constitutional no acute distress - *Routine HEENT Exam Head: Present: normocephalic Eye: Present: EOMI, PERRL ENT: Present: mucous membranes moist - *Routine Neck Exam Present: supple. Absent: lymphadenopathy - *Routine Respiratory Exam Present: CTA bilaterally - *Routine Cardiovascular Exam Present: RRR - *Routine Abdominal Exam Present: soft, normoactive bowel sounds, obese. Absent: tenderness - *Routine Extremities Exam Absent: cyanosis, clubbing, edema - *Routine Skin Exam Present: warm. Absent: rash - *Routine Neurological Exam Present: alert, oriented X3 Assessment and Plan (1) E. coli UTI Status: Acute Category: Medical Code(s): N39.0 - Urinary tract infection, site not specified; B96.20 - Unspecified Escherichia coli [E. coli] as the cause of diseases classified elsewhere (2) Bacteremia Status: Acute Category: Medical Code(s): R78.81 - Bacteremia (3) UTI (urinary tract infection) Status: Acute Qualifiers: Urinary tract infection type: site unspecified Hematuria presence: without hematuria Qualified Code(s): N39.0 - Urinary tract infection, site not specified Category: Medical Code(s): N39.0 - Urinary tract infection, site not specified (4) Acute respiratory failure with hypoxemia Status: Acute Category: Medical Code(s): J96.01 - Acute respiratory failure with hypoxia (5) Hypertension Status: Chronic Category: Medical Code(s): I10 - Essential (primary) hypertension (6) Type 2 diabetes mellitus Status: Chronic Category: Medical Code(s): E11.9 - Type 2 diabetes mellitus without complications (7) Altered mental status Status: Acute Category: Medical Code(s): R41.82 - Altered mental status, unspecified - Assessment and plan all Dx Assessment and Plan for all problems:: 750 mg levofloxacin daily for 1 week. See med list. Potassium 20 mEq a day. She will need follow-up blood work this next week.
[2021-12-08 09:07] LABS: Anion Gap 15.5 mEq/L (5-15); Blood Urea Nitrogen 14 mg/dl (7-17); Carbon Dioxide 25 mmol/L (22.0-30.0); Chloride 100 mmol/L (98-107); Creatinine Clearance Estimated 54 mL/min (50-200); Estimated Glomerular Filt Rate 83 ml/min (>60); GFR (African American) 101 ML/MIN (>60); Glucose 183 mg/dl (74-100); Potassium 4.5 mmoL/L (3.5-5.1); Sodium 136 mmol/L (136-145)
--- NOTE | 2021-12-10 23:09 | HMH.DCSUM ---
General - General Admission date:: 12/04/21 Discharge date: 12/08/21 HPI HPI: Ms. Neil is a 66-year-old female with a history of hypertension, type 2 diabetes mellitus, arthritis, hypothyroidism, and hyperlipidemia who presented to [facility] emergency room at the insistence of her due to altered mental status. She states she has not been feeling well for the past 3 to 4 days. Subjectively she feels like she has had a fever and her most outstanding symptom is a cough. She has not been eating or drinking very well at home but denies at this time any nausea or vomiting or diarrhea. Has been does help with the history. Evaluation in the emergency room chest x-rayShowed right lung edema or pneumonia. Laboratory data showed a urinary tract infection, H&H were 12.9 and 37.1 with a white blood cell count of 16,200. ABGs showed a pH of 7.55 PCO2 26.5 PO2 of 24.7 and a bicarb of 22.4. Blood chemistries show sodium of 131 and potassium of 3.2. BUN was 22 with a creatinine of 0.7. BNP is 4660. With evaluation temperature in the emergency room was 100 Was started on Rocephin and Zithromax and received a 500 mL of IV fluids. She was also given potassium for Hypokalemia. At the time of this exam patient is residing in the emergency room awaiting a bed on the medical floor. is with her. She is chilling and warm blankets are added. She denies any chest pain or shortness of breath. She states she was told she had a urinary tract infection. Hospital Course Hospital Course: The patient was admitted and started on Zithromax and Rocephin as well as sliding scale insulin and duo nebs. She had some respiratory distress during the evening of 12/05/2021 and had to receive 40 mg of Lasix IV. She was running a fever of over 102. Her blood cultures began growing gram-negative bacteria, therefore she was started on Levaquin and continued on Rocephin. She had a head CT because she had had a fall at home prior to admission where she hit her head, and it showed nothing acute. Her white blood cell count normalized. Her blood and urine cultures returned positive for E. coli. She began improving with the change in antibiotics. She was able to get up and eat and move about the room. By 12/08/2021 she was feeling better and was anxious to go home. Her potassium was low and had to be replaced. She was stable to be discharged on antibiotics and potassium and will follow up with Dr. Zaarte in the office. Objective Vital signs: Temp Pulse Resp BP Pulse Ox 97.9 F 73 16 139/77 96 12/08/21 08:00 12/08/21 08:00 12/08/21 08:00 12/08/21 08:00 12/08/21 08:00 Narrative: - Constitutional no acute distress Comments: Appears not to feel well and is chilling - *Routine HEENT Exam Head: Present: normocephalic, atraumatic Eye: Present: PERRL. Absent: conjunctival icterus, scleral injection ENT: Present: mucous membranes moist, oropharynx clear - *Routine Neck Exam Present: supple. Absent: carotid bruit, lymphadenopathy, thyromegaly - *Routine Respiratory Exam Present: CTA bilaterally (Anteriorly and posteriorly) - *Routine Cardiovascular Exam Present: RRR - *Routine Abdominal Exam Present: soft, normoactive bowel sounds. Absent: tenderness, distended - *Routine Rectal Exam Rectal:: deferred - *Routine Genitalia Exam Genitalia:: deferred - *Routine Extremities Exam Absent: edema, calf tenderness - *Routine Neurological Exam Present: alert, oriented X3 Speech is slow DS: Diagnosis - Discharge Diagnosis (1) E. coli UTI Status: Acute (2) Bacteremia Status: Acute (3) UTI (urinary tract infection) Status: Acute (4) Acute respiratory failure with hypoxemia Status: Acute (5) Hypertension Status: Chronic (6) Type 2 diabetes mellitus Status: Chronic (7) Altered mental status Status: Acute Discharge Plan - Patient Discharge Instructions
--- NOTE | 2021-12-11 14:21 | CARE MANAGER ---
Spoke with patient today for post-discharge phone interview. Patient states that she is weak and thinks she might feel a little better but she cannot say for sure. Her follow-up appointment is with Dr. Zarate on 12/20, I did instruct patient to call back if she feels she needs the appointment moved up.
== END 2021-12-08 10:16 | disposition home or self-care (01) | DRG 193 ==
LOC: ER 15:39 → 2ND 15:51 → ICU 21:28 → 2ND 12-05 14:19
PROVIDERS: Nurse Practitioner Family; Admitting Provider Family Medicine; Emergency Provider Emergency Medicine; PCP Family Medicine; Visit Provider Family Medicine
DX: J18.9 Pneumonia, unspecified organism (principal); J96.01 Acute respiratory failure with hypoxia; N39.0 Urinary tract infection, site not specified; I10 Essential (primary) hypertension; B96.20 Unspecified Escherichia coli [E. coli] as the cause of diseases classified elsewhere; E11.9 Type 2 diabetes mellitus without complications; E78.5 Hyperlipidemia, unspecified; M19.90 Unspecified osteoarthritis, unspecified site; E87.6 Hypokalemia; Z79.84 Long term (current) use of oral hypoglycemic drugs
CPT/HCPCS: 36415; 70450; 71045; 80048; 80053; 81001; 82140; 82803; 82962; 83036; 83605; 83880; 85007; 85025; 87040; 87070; 87077; 87086; 87088; 87186; 87205; 94640; 94761; 99285; C9803; J0456; J0696; J1956; J2405; U0003; U0005